=== PATIENT | male | born 1940 | race Caucasian/White ===

== ENCOUNTER 2019-06-24 12:40 | Day surgery (SDC) | payer OTHER ==
[~2019-06-24] VITALS: Ht 180.3 cm; Wt 82.5 kg
[~2019-06-24 12:40] MED LIST: ALLO100 PO; ASCO500 PO; ASPI325EC PO; ASPI81EC PO; ATOR40TA PO; Daily Multiple1 EACH PO; FISH OIL 1,0001 EAC1 PO; HYDACE10B PO; K-Dur20 MEQ PO; LOVA40 PO; METO50 PO; MICARDIS HCT PO; MITIGARE0.6 MG PO; OLME40 PO; OMEP20ER PO; TELM40 PO; VITAMIN D32000 UNI1 PO
--- NOTE | 2019-06-24 14:12 | NUR ---
06/24/19 1412 Chino Dozier EXPLAINED TO PT THAT DR QUEVEDO IS DELAYED IN SURGERY. PT STATES AN UNDERSTANDING. VSS. WARM BLANKET OFFERED. CALL LIGHT WITHIN REACH. WILL CONTINUE TO MONITOR.
--- NOTE | 2019-06-24 16:26 | NUR ---
06/24/19 1626 Chino Dozier PT RETCHING DURING COLONOSCOPY. PT SUCTIONED ORALLY. SMALL AMOUNT OF CLEAR SECRETIONS.
== END 2019-06-24 17:04 | disposition home or self-care (01) ==
LOC: ORSCSDS 12:40
PROVIDERS: Surgery
PROC: 0DJ08ZZ Inspection of Upper Intestinal Tract, Via Natural or Artificial Opening Endoscopic (ICD-10-PCS; principal; 2019-06-24 14:00)
PROC: 0DJD8ZZ Inspection of Lower Intestinal Tract, Via Natural or Artificial Opening Endoscopic (ICD-10-PCS; principal; 2019-06-24 14:00)
DX: D64.9 Anemia, unspecified (principal); I10 Essential (primary) hypertension; Z86.73 Personal history of transient ischemic attack (TIA), and cerebral infarction without residual deficits; E78.5 Hyperlipidemia, unspecified; F41.9 Anxiety disorder, unspecified; K21.9 Gastro-esophageal reflux disease without esophagitis; Z87.891 Personal history of nicotine dependence; Z79.899 Other long term (current) drug therapy
CPT/HCPCS: J2405; J2704; J7120

== ENCOUNTER 2022-02-20 11:28 | Inpatient (IN) | payer OTHER ==
[~2022-02-20] VITALS: Ht 180.3 cm; Wt 95.2 kg
[2022-02-20 12:26] LABS: BASOPHILS ABSOLUTE AUTO 0.03 K/mm3 (0.00-0.23); BASOPHILS PERCENT AUTO 0 % (0-2); EOSINOPHILS ABSOLUTE AUTO 0.02 K/mm3 (0.00-0.68); EOSINOPHILS PERCENT AUTO 0 % (0-6); Hematocrit 33.8 % (37.0-53.0); IMMATURE GRAN ABSOLUTE AUTO 0.07 K/mm3 (0.00-0.10); IMMATURE GRAN PERCENT AUTO 0 % (0-1); LYMPHOCYTES ABSOLUTE AUTO 0.49 K/mm3 (0.84-5.20); LYMPHOCYTES PERCENT AUTO 3 % (21-46); MONOCYTES ABSOLUTE AUTO 1.26 K/mm3 (0.16-1.47); MONOCYTES PERCENT AUTO 8 % (4-13); Mean Corpuscular HGB 36.4 pg (26.0-34.0); Mean Corpuscular HGB Conc 35.5 g/dL (31.5-36.5); Mean Corpuscular Volume 102 fL (80-100); Mean Platelet Volume 11.3 fL (9.1-12.4); NEUTROPHILS ABSOLUTE AUTO 13.75 K/mm3 (1.96-9.15); NEUTROPHILS PERCENT AUTO 88 % (41-73); Platelet Count 195 K/mm3 (150-400); RDW Coefficient Variation 12.8 % (11.7-14.2); RDW Standard Deviation 48.5 fL (35.1-46.3); White Blood Cell Count 15.62 K/mm3 (4.00-11.30)
[2022-02-20 12:45] LABS: Albumin, Blood 2.3 g/dL (3.4-5.0); Albumin/Globulin Ratio 0.5 (0.8-1.8); Bilirubin, Total 2.7 mg/dL (0.1-1.0); Bun/Creatinine Ratio 21.6 (12.0-20.0); Calcium, Blood 7.9 mg/dL (8.5-10.1); Creatinine, Blood 2.04 mg/dL (0.60-1.20); Globulin, Blood 4.7 g/dL (2.2-4.0)
[2022-02-20] MEDS ORDERED: AMLODIPINE BESYL5 MG PO (13:36)
[2022-02-20] MEDS ORDERED: ZOLOFT50 MG PO (13:38)
[2022-02-20 14:12] LABS: Source, Urine Clean Catch
[2022-02-20 14:24] LABS: Appearance, Urine Hazy (Clear); Bilirubin, Urine Neg (Neg); Blood, Urine 2+ (Neg); Color, Urine Yellow (P-Yellow); Glucose Qualitative, Urine Neg (Neg); Ketones, Urine Neg (Neg); Leukocyte Esterase, Urine Neg (Neg); Nitrite, Urine Neg (Neg); Protein, Urine 2+ (Neg); Specific Gravity, Urine 1.015 (1.003-1.022); Urobilinogen, Urine 2+ (Normal)
[2022-02-20 14:34] LABS: Bacteria Mod /hpf; Squamous Epithelial Cells Few /hpf (Few)
[2022-02-20 17:16] LABS: Campylobacter Sp Not Detected (NOT DETECT)
[2022-02-20 17:17] LABS: Adenovirus F 40/41 Not Detected (NOT DETECT); Astrovirus Not Detected (NOT DETECT); Cryptosporidium Not Detected (NOT DETECT); Cyclospora Cayetanensis Not Detected (NOT DETECT); Entamoeba Histolytica Not Detected (NOT DETECT); Enteroaggregative E. coli-EAEC Not Detected (NOT DETECT); Enteropathogenic E. coli-EPEC Not Detected (NOT DETECT); Enterotoxigenic E. coli-ETEC Not Detected (NOT DETECT); Giardia Lamblia Not Detected (NOT DETECT); Norovirus GI/GII Not Detected (NOT DETECT); Plesiomonas Shigelloides Not Detected (NOT DETECT); Rotavirus A Not Detected (NOT DETECT); Salmonella Sp Not Detected (NOT DETECT); Sapovirus Not Detected (NOT DETECT); Shiga Toxin-prod E. coli-STEC Not Detected (NOT DETECT); Shigella/Enteroin E. coli-EIEC Not Detected (NOT DETECT); Vibrio Cholerae Not Detected (NOT DETECT); Vibrio Sp Not Detected (NOT DETECT); Yersinia Enterocolitica Not Detected (NOT DETECT)
[2022-02-20 17:18] LABS: E. Coli O157 Not Detected (NOT DETECT)
[2022-02-20] MEDS ORDERED: TELMISARTAN-HC1 EAC4 PO (21:29)
[2022-02-20] MEDS ORDERED: SILDENAFIL CIT100 MG PO (21:32)
--- NOTE | 2022-02-21 04:33 | NUR ---
SHIFT SUMMARY PT ER ADMIT THIS SHIFT FOR ACUTE CHOLECYSTITIS. PT REPORTS MINIMAL PAIN AND NAUSEA SINCE ADMISSION. NO VOMITTING. ABD MILDLY DISTENDED BUT SOFT, BOWEL TONES HYPOACTIVE. PT HAS BEEN NPO PER ORDERS. PT HAS BEEN UP TO [facility] THIS SHIFT. HE IS ALSO INCONTINENT. IVF INFUSING ORDERED. PT HAS RESTED MOST OF THE SHIFT. PLAN IS FOR SURGERY TODAY. BED IN LOWEST POSITION, CALL LIGHT WITHIN REACH.
[2022-02-21 04:35] LABS: BASOPHILS ABSOLUTE AUTO 0.03 K/mm3 (0.00-0.23); BASOPHILS PERCENT AUTO 0 % (0-2); EOSINOPHILS ABSOLUTE AUTO 0.02 K/mm3 (0.00-0.68); EOSINOPHILS PERCENT AUTO 0 % (0-6); Hematocrit 32.1 % (37.0-53.0); IMMATURE GRAN ABSOLUTE AUTO 0.12 K/mm3 (0.00-0.10); IMMATURE GRAN PERCENT AUTO 1 % (0-1); LYMPHOCYTES ABSOLUTE AUTO 0.56 K/mm3 (0.84-5.20); LYMPHOCYTES PERCENT AUTO 3 % (21-46); MONOCYTES ABSOLUTE AUTO 1.44 K/mm3 (0.16-1.47); MONOCYTES PERCENT AUTO 8 % (4-13); Mean Corpuscular HGB 35.6 pg (26.0-34.0); Mean Corpuscular HGB Conc 34.3 g/dL (31.5-36.5); Mean Corpuscular Volume 104 fL (80-100); Mean Platelet Volume 11.4 fL (9.1-12.4); NEUTROPHILS ABSOLUTE AUTO 14.89 K/mm3 (1.96-9.15); NEUTROPHILS PERCENT AUTO 87 % (41-73); Platelet Count 152 K/mm3 (150-400); RDW Standard Deviation 49.6 fL (35.1-46.3); Red Blood Cell Count 3.09 M/mm3 (4.30-5.90); White Blood Cell Count 17.06 K/mm3 (4.00-11.30)
[2022-02-21 04:59] LABS: Albumin/Globulin Ratio 0.5 (0.8-1.8); Bilirubin, Total 1.7 mg/dL (0.1-1.0); Bun/Creatinine Ratio 22.9 (12.0-20.0); Calcium, Blood 7.5 mg/dL (8.5-10.1); Creatinine, Blood 1.57 mg/dL (0.60-1.20); Globulin, Blood 4.3 g/dL (2.2-4.0); Potassium, Blood 3.2 mmol/L (3.5-5.5); Total Protein, Blood 6.3 g/dL (6.4-8.2)
--- NOTE | 2022-02-21 11:02 | NUR ---
02/21/22 1102 Angelic Chahal PATIENT ON SCHEDULED ANTIBIOTICS, RECEIVED ZOSYN 3G, TODAY, AT 0907. HE RECEIVED HIS METOPROLOL 25MG, TODAY, AT 0906.
--- NOTE | 2022-02-21 12:48 | NUR ---
PATIENT ARRIVED TO ROOM FROM PACU ABOUT 1220. ALERT AND TALKATIVE TO STAFF. 2L [address], SATS >92%. X3 LAP SITES W/ DERMABOND, C/D/I. SEVERO TO RLQ DRAINING SS FLUID. PATIENT DENIES PAIN AT THIS TIME. ATTENDS IN PLACE FOR INCONTINENCE. CALL LIGHT IN REACH.
--- NOTE | 2022-02-21 18:10 | NUR ---
SHIFT SUMMARY PATIENT HAD GALLBLADDER REMOVED TODAY W/ DR. CRUZ. NO ACUTE CHANGES SINCE RETURNING TO FLOOR, PAIN HAS BEEN MINIMAL, MEDICATED X1 PER EMAR. LUNGS CLEAR, VSS ON RA, PATIENT TOLERATING PO DIET WELL, DENIES N/V. VOIDING WELL ALTHOUGH INCONT AT TIMES, ATTENDS IN PLACE. SAT AT EDGE OF BED FOR DINNER. WILL REPORT TO ONCOMING RN.
[2022-02-22 04:24] LABS: BASOPHILS ABSOLUTE AUTO 0.02 K/mm3 (0.00-0.23); BASOPHILS PERCENT AUTO 0 % (0-2); EOSINOPHILS PERCENT AUTO 0 % (0-6); Hematocrit 30.8 % (37.0-53.0); Hemoglobin 10.5 g/dL (13.5-17.5); IMMATURE GRAN ABSOLUTE AUTO 0.14 K/mm3 (0.00-0.10); IMMATURE GRAN PERCENT AUTO 1 % (0-1); LYMPHOCYTES ABSOLUTE AUTO 0.29 K/mm3 (0.84-5.20); LYMPHOCYTES PERCENT AUTO 2 % (21-46); MONOCYTES ABSOLUTE AUTO 0.77 K/mm3 (0.16-1.47); MONOCYTES PERCENT AUTO 6 % (4-13); Mean Corpuscular HGB 35.7 pg (26.0-34.0); Mean Corpuscular HGB Conc 34.1 g/dL (31.5-36.5); Mean Corpuscular Volume 105 fL (80-100); Mean Platelet Volume 11.2 fL (9.1-12.4); NEUTROPHILS ABSOLUTE AUTO 12.88 K/mm3 (1.96-9.15); NEUTROPHILS PERCENT AUTO 91 % (41-73); Platelet Count 173 K/mm3 (150-400); RDW Coefficient Variation 12.9 % (11.7-14.2); RDW Standard Deviation 50.1 fL (35.1-46.3); Red Blood Cell Count 2.94 M/mm3 (4.30-5.90)
[2022-02-22 04:45] LABS: Albumin, Blood 1.8 g/dL (3.4-5.0); Albumin/Globulin Ratio 0.4 (0.8-1.8); Bilirubin, Total 0.6 mg/dL (0.1-1.0); Bun/Creatinine Ratio 26.4 (12.0-20.0); Calcium, Blood 7.8 mg/dL (8.5-10.1); Creatinine, Blood 1.4 mg/dL (0.60-1.20); Globulin, Blood 4.1 g/dL (2.2-4.0); Magnesium, Blood 1.6 mg/dL (1.6-2.4); Potassium, Blood 4.1 mmol/L (3.5-5.5); Total Protein, Blood 5.9 g/dL (6.4-8.2)
--- NOTE | 2022-02-22 07:22 | NUR ---
SUMMARY PT VERB IMPROVED PAIN CONTROL. VOIDING INCONTINENT.TOLERATING PO.IV FLUIDS INFUSING,RECEIVED ANTIBIOTICS.BUTTOCKS CREASE SLIGHTLY PINK. APPLIED BARRIER CREAM.
--- NOTE | 2022-02-22 16:27 | NUR ---
LIP BRUISE PT HAS A BRUISE ON RIGHT SIDE OF LOWER LIP OF UNKNOWN CAUSE. PT STATES IT'S NOT PAINFUL, BUT WAS NOT THERE PRIOR TO ADMISSION. NO ABRASION OR OPEN SOAR.
--- NOTE | 2022-02-22 18:16 | NUR ---
SHIFT SUMMARY PT A&OX4. PAIN HAS BEEN MINIMAL. PT HAS BEEN USING THE BATHROOM WITH SBA AND FWW, ATTENDS IN PLACE INCASE OF INCONT. SAT IN CHAIR FOR BREAKFAST/LUNCH, TOLERATING PO INTAKE, NO N/V. SEVERO EMPTIED ONCE, 30ML. USES CALL LIGHT APPROPRIATELY. CALL LIGHT WITHIN REACH.
[2022-02-23 03:49] LABS: BASOPHILS ABSOLUTE AUTO 0.03 K/mm3 (0.00-0.23); BASOPHILS PERCENT AUTO 0 % (0-2); EOSINOPHILS ABSOLUTE AUTO 0.19 K/mm3 (0.00-0.68); EOSINOPHILS PERCENT AUTO 2 % (0-6); Hematocrit 32.4 % (37.0-53.0); Hemoglobin 10.9 g/dL (13.5-17.5); IMMATURE GRAN ABSOLUTE AUTO 0.23 K/mm3 (0.00-0.10); IMMATURE GRAN PERCENT AUTO 2 % (0-1); LYMPHOCYTES ABSOLUTE AUTO 0.87 K/mm3 (0.84-5.20); LYMPHOCYTES PERCENT AUTO 8 % (21-46); MONOCYTES PERCENT AUTO 6 % (4-13); Mean Corpuscular HGB 35.9 pg (26.0-34.0); Mean Corpuscular HGB Conc 33.6 g/dL (31.5-36.5); Mean Corpuscular Volume 107 fL (80-100); NEUTROPHILS ABSOLUTE AUTO 8.96 K/mm3 (1.96-9.15); NEUTROPHILS PERCENT AUTO 82 % (41-73); Platelet Count 206 K/mm3 (150-400); RDW Coefficient Variation 13.1 % (11.7-14.2); RDW Standard Deviation 50.9 fL (35.1-46.3); Red Blood Cell Count 3.04 M/mm3 (4.30-5.90); White Blood Cell Count 10.88 K/mm3 (4.00-11.30)
[2022-02-23 04:09] LABS: Albumin, Blood 1.9 g/dL (3.4-5.0); Albumin/Globulin Ratio 0.4 (0.8-1.8); Bilirubin, Total 0.5 mg/dL (0.1-1.0); Bun/Creatinine Ratio 28.3 (12.0-20.0); Calcium, Blood 8.2 mg/dL (8.5-10.1); Creatinine, Blood 1.2 mg/dL (0.60-1.20); Globulin, Blood 4.4 g/dL (2.2-4.0); Potassium, Blood 3.8 mmol/L (3.5-5.5); Total Protein, Blood 6.3 g/dL (6.4-8.2)
--- NOTE | 2022-02-23 04:31 | NUR ---
PT IS A&OX4, USES BU TO VOID, IS A SBA WHEN AMBULATING AND IS ABLE TO MAKE NEEDS KNOWN. PT IS POST OP DAY 2 FOR LAP TAN, HAS SEVERO DRAIN THAT IS PRODUCING SMALL AMOUNTS OF SEROSANG FLUID. PT IS ABLE TO SLEEP 6+ HOURS THIS SHIFT. TOLERATING PO FLUIDS AND SOLIDS. DENIES PAIN. WILL CONTINUE TO MONITOR THIS PT AND GIVE REPORT TO ONCOMING NURSE.
[2022-02-23] MEDS ORDERED: HYDR1TAB94 PO (11:03)
[2022-02-23] MEDS ORDERED: VISBIOME 112.51 EACH PO (11:03)
[2022-02-23] MEDS ORDERED: AMOCLA875 PO (11:04)
[2022-02-23] MEDS ORDERED: Norco 5-325 Ta1 EACH PO (14:28)
--- NOTE | 2022-02-23 14:48 | NUR ---
DISCHARGE VSS ON RA. PATIENT REPORTS MILD ABDOMINAL PAIN THAT IS TOLERABLE. LAP SITES W/ DERMABOND, C/D/I. EATING, DRINKING, 7 VOIDING WELL. NO BM YET, REPORTS FLATUS. DISCUSSED D/C INSTRUCTIONS AND SENT WITH PATIENT. SENT SCRIPT W/ PATIENT. ESCORTED OUT VIA W/C.
== END 2022-02-23 14:36 | disposition home or self-care (01) | DRG 418 ==
LOC: ER 11:28 → SURS 11:29 → ER 11:30 → EDBEDREQ 18:33 → EDBEDREQSVC 18:33 → EDBEDREQTM 18:33 → SURS 20:11
PROVIDERS: Emergency Medicine; Internal Medicine; Physician Assistant; Surgery; ADMIT Internal Medicine
PROC: 0FT44ZZ Resection of Gallbladder, Percutaneous Endoscopic Approach (ICD-10-PCS; principal; 2022-02-21 10:00)
DX: K80.00 Calculus of gallbladder with acute cholecystitis without obstruction (principal); N17.9 Acute kidney failure, unspecified; E87.6 Hypokalemia; K57.30 Diverticulosis of large intestine without perforation or abscess without bleeding; I71.4 Abdominal aortic aneurysm, without rupture; E78.00 Pure hypercholesterolemia, unspecified; K21.9 Gastro-esophageal reflux disease without esophagitis; M10.9 Gout, unspecified; I10 Essential (primary) hypertension; E78.5 Hyperlipidemia, unspecified; M19.90 Unspecified osteoarthritis, unspecified site; F10.10 Alcohol abuse, uncomplicated; Z79.82 Long term (current) use of aspirin; Z79.899 Other long term (current) drug therapy; Z87.891 Personal history of nicotine dependence; Z98.890 Other specified postprocedural states
CPT/HCPCS: 36415; 74176; 76705; 80053; 81001; 83605; 83690; 83735; 84484; 85025; 87040; 87086; 87507; 88304; 93005; 93010; 94760; 96365; 96366; 99285-25; A9270; G0378; J0295; J1100; J1885; J2250; J2405; J2543; J2704; J2710; J3010; J7030; J7120

== ENCOUNTER 2022-06-06 10:08 | Day surgery (SDC) | payer OTHER ==
[~2022-06-06] VITALS: Ht 177.8 cm; Wt 88.0 kg
[~2022-06-06 10:08] MED LIST changes: +AMLODIPINE BESYL5 MG PO; +AMOCLA875 PO; -ASPI325EC PO; +Aspir 8181 MG PO; +HYDR1TAB94 PO; +HYDROCHLOROTH12.5 MG PO; +METO100ER PO; -METO50 PO; +Norco 5-325 Ta1 EACH PO; +SILDENAFIL CIT100 MG PO; +TELM80 PO; +TELMISARTAN-HC1 EAC4 PO; +THERA-D2000 UNIT PO; +VISBIOME 112.51 EACH PO; +ZOLOFT50 MG PO
--- NOTE | 2022-06-06 15:32 | NUR ---
PATIENT RETURNED FROM THE [facility] VIA STRETCHER. PATIENT PLACED ON THE MONITOR AND SBAR GIVEN FROM PREETHI SAENZ. RIGHT GROIN SITE DRESSING CDI. NO BLEEDING, NO HEMATOMA. CALL LIGHT IN REACH. JUICE AT THE BEDSIDE. PATIENT CALLED HIS RIDE AND POTENTIAL DISCHARGE PLAN AT 1800.
--- NOTE | 2022-06-06 17:23 | NUR ---
PATIENT SITTING UP 45 DEGREES TO EAT DINNER TRAY. C/O LEFT THIGH PAIN/ CRAMPING, EXPLAINED TO THE PAITENT THAT THIS IS WHERE DR. CARRERO PERFORMED WORK ON HIS LEG ARTERY TODAY. STARTED REVEIWING DISCHARGE INSTRUCTIONS WITH THE [facility]AN[facility] AND HIS FOLLOW UP APPOINTMENT.
--- NOTE | 2022-06-06 17:39 | NUR ---
PATIENT UP TO THE RESTROOM. USING WALKER AND SLOW WALK TO AND FROM THE RESTROOM. PIV REMOVED, CATH TIP INTACT, PRESSURE DRESSING APPLIED. PATIENT CALLED FOR HOROLOGIST APPRENTICE AND THEN DRESSED SELF. ALL BELONGINGS GATHERED. REVIEWED DISCHARGE INSTRUCTIONS AND COPIES GIVEN.
--- NOTE | 2022-06-06 17:52 | NUR ---
PATIENT DISCHARGED HOME VIA WHEELCHAIR TO CLAIMS CORRESPONDENCE CLERK, FRIEND.
== END 2022-06-06 23:11 | disposition home or self-care (01) ==
LOC: MHTC 10:08
DX: I70.213 Atherosclerosis of native arteries of extremities with intermittent claudication, bilateral legs (principal); I13.0 Hypertensive heart and chronic kidney disease with heart failure and stage 1 through stage 4 chronic kidney disease, or unspecified chronic kidney disease; I50.9 Heart failure, unspecified; N18.9 Chronic kidney disease, unspecified; E78.5 Hyperlipidemia, unspecified; K21.9 Gastro-esophageal reflux disease without esophagitis; E03.9 Hypothyroidism, unspecified; Z86.73 Personal history of transient ischemic attack (TIA), and cerebral infarction without residual deficits; Z87.891 Personal history of nicotine dependence; Z79.82 Long term (current) use of aspirin; Z79.899 Other long term (current) drug therapy
CPT/HCPCS: 37227; 75625; 75716; 75774; 76937; 99152; 99153; C1714; C1760; C1769; C1874; C1887; C1894; C2623; J1644; J2250; J3010; J7030; J7040; Q9967

== ENCOUNTER 2023-01-04 20:01 | Inpatient (IN) | payer OTHER ==
[~2023-01-04] VITALS: Ht 180.3 cm; Wt 84.8 kg
[2023-01-04 20:27] LABS: BASOPHILS ABSOLUTE AUTO 0.03 K/mm3 (0.00-0.23); BASOPHILS PERCENT AUTO 0 % (0-2); EOSINOPHILS ABSOLUTE AUTO 0.01 K/mm3 (0.00-0.68); EOSINOPHILS PERCENT AUTO 0 % (0-6); Hematocrit 33.6 % (37.0-53.0); Hemoglobin 11.9 g/dL (13.5-17.5); IMMATURE GRAN ABSOLUTE AUTO 0.04 K/mm3 (0.00-0.10); IMMATURE GRAN PERCENT AUTO 0 % (0-1); LYMPHOCYTES ABSOLUTE AUTO 0.51 K/mm3 (0.84-5.20); LYMPHOCYTES PERCENT AUTO 4 % (21-46); MONOCYTES ABSOLUTE AUTO 0.77 K/mm3 (0.16-1.47); MONOCYTES PERCENT AUTO 5 % (4-13); Mean Corpuscular HGB 35.3 pg (26.0-34.0); Mean Corpuscular HGB Conc 35.4 g/dL (31.5-36.5); Mean Corpuscular Volume 100 fL (80-100); Mean Platelet Volume 11.2 fL (9.1-12.4); NEUTROPHILS ABSOLUTE AUTO 12.95 K/mm3 (1.96-9.15); NEUTROPHILS PERCENT AUTO 90 % (41-73); Platelet Count 215 K/mm3 (150-400); Red Blood Cell Count 3.37 M/mm3 (4.30-5.90); White Blood Cell Count 14.31 K/mm3 (4.00-11.30)
[2023-01-04 20:50] LABS: Albumin, Blood 3.2 g/dL (3.4-5.0); Albumin/Globulin Ratio 0.8 (0.8-1.8); Bun/Creatinine Ratio 21.1 (12.0-20.0); Calcium, Blood 8.7 mg/dL (8.5-10.1); Creatinine, Blood 0.99 mg/dL (0.60-1.20); Globulin, Blood 4.1 g/dL (2.2-4.0); Potassium, Blood 3.5 mmol/L (3.5-5.5); Total Protein, Blood 7.3 g/dL (6.4-8.2)
[2023-01-04 21:23] LABS: Source, Urine Clean Catch
[2023-01-04 21:28] LABS: Bilirubin, Urine Neg (Neg); Blood, Urine 5+ (Neg); Glucose Qualitative, Urine Neg (Neg); Ketones, Urine 1+ (Neg); Leukocyte Esterase, Urine Neg (Neg); Nitrite, Urine Neg (Neg); Protein, Urine 1+ (Neg); Urobilinogen, Urine NORM (Normal)
[2023-01-04 21:55] LABS: Appearance, Urine Hazy (Clear); Color, Urine Yellow (P-Yellow)
[2023-01-04 21:56] LABS: Bacteria Not Seen /hpf; Red Blood Cells, Urine TNTC /hpf (0-2); Squamous Epithelial Cells Not Seen /hpf (Few); White Blood Cells, Urine Not Seen /hpf (0-5)
[2023-01-05 05:03] LABS: BASOPHILS ABSOLUTE AUTO 0.04 K/mm3 (0.00-0.23); BASOPHILS PERCENT AUTO 1 % (0-2); EOSINOPHILS ABSOLUTE AUTO 0.09 K/mm3 (0.00-0.68); EOSINOPHILS PERCENT AUTO 1 % (0-6); Hematocrit 28.2 % (37.0-53.0); Hemoglobin 9.9 g/dL (13.5-17.5); IMMATURE GRAN ABSOLUTE AUTO 0.03 K/mm3 (0.00-0.10); IMMATURE GRAN PERCENT AUTO 0 % (0-1); LYMPHOCYTES ABSOLUTE AUTO 0.69 K/mm3 (0.84-5.20); LYMPHOCYTES PERCENT AUTO 8 % (21-46); MONOCYTES ABSOLUTE AUTO 0.71 K/mm3 (0.16-1.47); MONOCYTES PERCENT AUTO 8 % (4-13); Mean Corpuscular HGB 35.2 pg (26.0-34.0); Mean Corpuscular HGB Conc 35.1 g/dL (31.5-36.5); Mean Corpuscular Volume 100 fL (80-100); Mean Platelet Volume 11.1 fL (9.1-12.4); NEUTROPHILS ABSOLUTE AUTO 6.99 K/mm3 (1.96-9.15); NEUTROPHILS PERCENT AUTO 82 % (41-73); Platelet Count 162 K/mm3 (150-400); RDW Coefficient Variation 13.2 % (11.7-14.2); Red Blood Cell Count 2.81 M/mm3 (4.30-5.90); White Blood Cell Count 8.55 K/mm3 (4.00-11.30)
[2023-01-05 05:40] LABS: Albumin, Blood 2.7 g/dL (3.4-5.0); Albumin/Globulin Ratio 0.8 (0.8-1.8); Bilirubin, Total 0.7 mg/dL (0.1-1.0); Bun/Creatinine Ratio 20.7 (12.0-20.0); Calcium, Blood 7.8 mg/dL (8.5-10.1); Creatinine, Blood 1.11 mg/dL (0.60-1.20); Globulin, Blood 3.4 g/dL (2.2-4.0); Magnesium, Blood 0.9 mg/dL (1.6-2.4); Potassium, Blood 2.9 mmol/L (3.5-5.5); Total Protein, Blood 6.1 g/dL (6.4-8.2)
--- NOTE | 2023-01-05 07:17 | NUR ---
CROP PEST CONTROL SPECIALIST SUMMARY: A&Ox4. PLEASANT AND COOPERATIVE WITH CARE. CALLS APPROPRIATELY AND IS ABLE TO COMMUNICATE NEEDS EFFECTIVELY. ORIENTED TO ABILITIES AND EXHIBITS GOOD JUDGMENT. INDEPENDENT AT BASELINE BUT REQUIRING 1-2PA D/T LEFT-SIDED DEFICIT. NO C / O PAIN. LABS DRAWN THIS AM; CRITICAL MAGNESIUM OF 0.9 REPORTED. ALSO NOTED TO HAVE POTASSIUM OF 2.9. CALL TO DR JAEGER; ORDERS FOR MAGNESIUM 4000MG IV AND 40MEQ K+ NOW AND AGAIN IN FOUR HOURS. REPORT TO ONCOMING RN.
--- NOTE | 2023-01-05 17:51 | NUR ---
SHIFT SUMMARY: PATIENT A&OX4. CALM, PLEASANT AND COOPERATIVE c CARE. USES CALL LIGHT APPROPRIATELY AND ABLE TO MAKE NEEDS KNOWN. PATIENT HAS LEFT SIDED DEFICIT. NO ISSUES SWALLOWING c FOOD AND LIQUIDS. DENIES CP/PRESSURE, N/V, SOB, AND GENERALIZED PAIN. PATIENT ON TELE, SR HR 83 BPM c PVC. PATIENT WORK c PT MOBILITY TODAY, RECOMMENDED 1-2 HRS OF THERAPY DAILY. ECHO AND MRI DONE TODAY, AWAITING FOR RESULT. PATIENT IS CONTIN/INCONT OF URINE, USES URINAL c ASSISTANCE. NOTED RED BLOOD DISCHARGES COMING OUT FROM URETHRA. PATIENT DENIES PAIN TO SUPRAPUBIC AREA AND WHEN URINATING. VITAL SIGNS REVIEWED. L ARM ELEVATED ON PILLOWS, REPOSITIONED AND ATTENDS CHANGED. IV TO R FOREARM SALINE LOCKED. BED ALARM ON FOR SAFETY. CALL LIGHT IN REACH.
--- NOTE | 2023-01-06 04:00 | NUR ---
PROPOSAL WRITER SUMMARY NO ACUTE EVENTS THROUGHOUT THE NIGHT. A&OX4. PATIENT EFFECTIVELY COMMUNICATES NEEDS. VSS. RR EVEN AND UNLABORED ON RA. APAP ADMINISTERED PER ORDER FOR GENERALIZED PAIN. PATIENT APPEARED TO SLEEP WELL THIS SHIFT. BED LOW AND LOCKED. CALL LIGHT WITHIN REACH. THIS RN WILL CONTINUE TO MONITOR.
[2023-01-06 05:38] LABS: Bun/Creatinine Ratio 21.8 (12.0-20.0); Creatinine, Blood 1.24 mg/dL (0.60-1.20); Magnesium, Blood 2.1 mg/dL (1.6-2.4); Phosphorus, Blood 2.9 mg/dL (2.5-4.9); Potassium, Blood 3.4 mmol/L (3.5-5.5)
[2023-01-06] MEDS ORDERED: CLOP75 PO (16:02)
[2023-01-06 16:31] LABS: SARS-Cov-2 (COVID-19) PCR, MMC NEGATIVE (NEGATIVE)
--- NOTE | 2023-01-06 18:10 | NUR ---
SHIFT SUMMARY: NO ACUTE EVENTS. NO EVENTS ON TELEMETRY, SR-ST 90-110'S WITH FREQUENT PVC'S. L ARM HAS SOME LATERAL MOVEMENT BUT NO HAND STRENGTH. LLE WITH MINIMAL STRENGTH. DENIED PAIN. POTASSIUM REPLACED. USING URINAL WITH ASSISTANCE. WORKED WITH PT/OT. HAS BEEN ACCEPTED TO SNF, LIKELY D/C TOMORROW.
--- NOTE | 2023-01-07 05:27 | NUR ---
82 YR M ADMITTED ON 01/05/23 FOR CVA W/ LEFT SIDED DEFICEIT. FULL CODE. NO ACUTE CHANGES THIS SHIFT. PT STATES HE IS DETERMINED TO GET STRONGER AND BE INDEPENDANT. HE IS DOING EXERCISES IN BED THAT PT SUGGESTED FOR HIM, ESPECIALLY WITH HIS LEFT ARM. HE HAS A POSITIVE ATTITUDE AND HAS HAD NO C/O PAIN OR DISCOMFORT THIS SHIFT.
--- NOTE | 2023-01-07 16:08 | NUR ---
SHIFT SUMMARY: NO ACUTE EVENTS. NO EVENTS ON TELEMETRY, SR-ST 90-108 WITH PVC'S AND FIRST DEGREE BLOCK. SLIGHT IMPROVEMENT NOTED IN LLE STRENGTH, NO CHANGE TO LUE STRENGTH. USING URINAL WITH ASSISTANCE. REQUIRES 1-2 PERSON GAIT BELT AND FWW FOR TRANSFERS. APPETITE IS GOOD. AWAITING INSURANCE AUTH BEFORE TRANSFER TO [facility]ED REHAB.
[2023-01-08 06:51] LABS: Anion Gap 3 mmol/L (6-16); Blood Urea Nitrogen 28 mg/dL (8-24); Bun/Creatinine Ratio 25.7 (12.0-20.0); CHOL/HDL RATIO 3.6; CO2, Blood 30 mmol/L (21-32); Calcium, Blood 8.8 mg/dL (8.5-10.1); Chloride, Blood 105 mmol/L (98-108); Cholesterol 130 mg/dL (50-200); Creatinine, Blood 1.09 mg/dL (0.60-1.20); Glomerular Filtration Rate 67 (60-); Glucose, Blood 137 mg/dL (70-99); HDL Cholesterol 36 mg/dL (>39); LDL/HDL RATIO 1.8; Low Density Lipoprotein Chol 65 mg/dL (0-110); Potassium, Blood 3.7 mmol/L (3.5-5.5); Sodium, Blood 138 mmol/L (136-145); Triglycerides 145 mg/dL (30-160); Very Low Density Lipoprot Chol 29 mg/dL (6-32)
[2023-01-08 09:34] LABS: SARS-Cov-2 (COVID-19) PCR, MMC Negative (NEGATIVE)
[2023-01-08] MEDS ORDERED: PANT20 PO (10:39)
--- NOTE | 2023-01-08 12:49 | NUR ---
PATIENT PLEASANT AND COOPERATIVE WITH CARE. CHAIR ALARM ON FOR SAFETY. CALLS APPROPRIATELY. REPORT CALLED TO BRICE ORO AT [facility].
--- NOTE | 2023-01-08 15:31 | NUR ---
PATIENT DISCHARGED TO [facility], VIA WHEELCHAIR TRANSPORT, EDUCATION PROVIDED.
== END 2023-01-08 14:59 | DRG 65 ==
LOC: ER 20:01 → MEDS 20:02
PROVIDERS: Emergency Medicine; Internal Medicine; ADMIT Student in an Organized Health Care Education/Training Program
DX: I63.511 Cerebral infarction due to unspecified occlusion or stenosis of right middle cerebral artery (principal); G81.94 Hemiplegia, unspecified affecting left nondominant side; I10 Essential (primary) hypertension; E78.00 Pure hypercholesterolemia, unspecified; K21.9 Gastro-esophageal reflux disease without esophagitis; E83.42 Hypomagnesemia; Z20.822 Contact with and (suspected) exposure to COVID-19; E87.6 Hypokalemia; M10.9 Gout, unspecified; Z79.82 Long term (current) use of aspirin; Z79.899 Other long term (current) drug therapy; Z87.891 Personal history of nicotine dependence; Z98.890 Other specified postprocedural states; Z90.49 Acquired absence of other specified parts of digestive tract; Z28.21 Immunization not carried out because of patient refusal
CPT/HCPCS: 36415; 70450; 70496; 70498; 70551; 80048; 80053; 80061; 81001; 83735; 84100; 85025; 92610; 93005; 93010; 93306; 96365; 96366; 96372; 97110; 97112; 97162; 97166; 97530; 97535; 99285-25; A9270; G0378; J1650; J3475; Q9967; U0004

== ENCOUNTER 2023-03-03 14:14 | Emergency (ER) | payer OTHER ==
[~2023-03-03] VITALS: Ht 180.3 cm; Wt 88.5 kg
[~2023-03-03 14:14] MED LIST changes: -ATOR40TA PO; +CLOP75 PO; +PANT20 PO
[2023-03-03] MEDS ORDERED: OMEP20ER (14:44)
[2023-03-03] MEDS ORDERED: AMLODIPINE BESYL5 MG PO (14:44)
[2023-03-03] MEDS ORDERED: ATOR40TA PO (14:46)
[2023-03-03] MEDS ORDERED: LIDO700A20 TOP (16:21)
[2023-03-03 19:43] VITALS: BP 175/90
== END 2023-03-03 19:44 | disposition home or self-care (01) ==
LOC: ER 14:14
DX: M54.50 Low back pain, unspecified (principal); I10 Essential (primary) hypertension; E78.00 Pure hypercholesterolemia, unspecified; K21.9 Gastro-esophageal reflux disease without esophagitis; Z79.02 Long term (current) use of antithrombotics/antiplatelets; Z79.899 Other long term (current) drug therapy; Z87.891 Personal history of nicotine dependence; W18.30XA Fall on same level, unspecified, initial encounter; Y92.002 Bathroom of unspecified non-institutional (private) residence as the place of occurrence of the external cause
CPT/HCPCS: 72100; A9270; J1885

== ENCOUNTER 2023-05-03 09:52 | Emergency (ER) | payer OTHER ==
[~2023-05-03] VITALS: Ht 180.3 cm; Wt 78.0 kg
[~2023-05-03 09:52] MED LIST changes: +ATOR40TA PO; +LIDO700A20 TOP; +OMEP20ER
[2023-05-03 10:57] LABS: BASOPHILS ABSOLUTE AUTO 0.03 K/mm3 (0.00-0.23); BASOPHILS PERCENT AUTO 0 % (0-2); EOSINOPHILS ABSOLUTE AUTO 0.04 K/mm3 (0.00-0.68); EOSINOPHILS PERCENT AUTO 0 % (0-6); Hemoglobin 11.4 g/dL (13.5-17.5); IMMATURE GRAN ABSOLUTE AUTO 0.04 K/mm3 (0.00-0.10); IMMATURE GRAN PERCENT AUTO 0 % (0-1); LYMPHOCYTES ABSOLUTE AUTO 0.67 K/mm3 (0.84-5.20); LYMPHOCYTES PERCENT AUTO 6 % (21-46); MONOCYTES PERCENT AUTO 5 % (4-13); Mean Corpuscular HGB 32.9 pg (26.0-34.0); Mean Corpuscular HGB Conc 33.5 g/dL (31.5-36.5); Mean Corpuscular Volume 98 fL (80-100); Mean Platelet Volume 11.2 fL (9.1-12.4); NEUTROPHILS ABSOLUTE AUTO 9.63 K/mm3 (1.96-9.15); NEUTROPHILS PERCENT AUTO 87 % (41-73); Platelet Count 161 K/mm3 (150-400); RDW Coefficient Variation 14.3 % (11.7-14.2); RDW Standard Deviation 51.3 fL (35.1-46.3); Red Blood Cell Count 3.46 M/mm3 (4.30-5.90); White Blood Cell Count 11.01 K/mm3 (4.00-11.30)
[2023-05-03 11:15] LABS: Albumin, Blood 2.5 g/dL (3.4-5.0); Albumin/Globulin Ratio 0.6 (0.8-1.8); Bilirubin, Total 1.1 mg/dL (0.1-1.0); Bun/Creatinine Ratio 17.9 (12.0-20.0); Calcium, Blood 6.6 mg/dL (8.5-10.1); Creatinine, Blood 1.17 mg/dL (0.60-1.20); Potassium, Blood 3.2 mmol/L (3.5-5.5); Total Protein, Blood 6.5 g/dL (6.4-8.2)
[2023-05-03] MEDS ORDERED: PROM25 PO (11:58)
[2023-05-03 12:00] VITALS: BP 159/104
== END 2023-05-03 12:37 | disposition home or self-care (01) ==
LOC: ER 09:52
PROVIDERS: Emergency Medicine
DX: R11.2 Nausea with vomiting, unspecified (principal); Z87.891 Personal history of nicotine dependence; Z79.899 Other long term (current) drug therapy
CPT/HCPCS: 80053; 83690; 85025; J2405; J7030

== ENCOUNTER 2023-05-10 08:47 | Inpatient (IN) | payer OTHER ==
[~2023-05-10] VITALS: Ht 180.3 cm; Wt 78.9 kg
[~2023-05-10 08:47] MED LIST changes: -OMEP20ER; +PROM25 PO
[2023-05-10 09:06] LABS: BASOPHILS ABSOLUTE AUTO 0.03 K/mm3 (0.00-0.23); BASOPHILS PERCENT AUTO 0 % (0-2); EOSINOPHILS ABSOLUTE AUTO 0.03 K/mm3 (0.00-0.68); EOSINOPHILS PERCENT AUTO 0 % (0-6); Hematocrit 37.4 % (37.0-53.0); IMMATURE GRAN ABSOLUTE AUTO 0.14 K/mm3 (0.00-0.10); IMMATURE GRAN PERCENT AUTO 1 % (0-1); LYMPHOCYTES ABSOLUTE AUTO 1.21 K/mm3 (0.84-5.20); LYMPHOCYTES PERCENT AUTO 8 % (21-46); MONOCYTES PERCENT AUTO 5 % (4-13); Mean Corpuscular HGB 33.3 pg (26.0-34.0); Mean Corpuscular HGB Conc 34.8 g/dL (31.5-36.5); Mean Corpuscular Volume 96 fL (80-100); Mean Platelet Volume 11.2 fL (9.1-12.4); NEUTROPHILS ABSOLUTE AUTO 14.01 K/mm3 (1.96-9.15); NEUTROPHILS PERCENT AUTO 86 % (41-73); Platelet Count 316 K/mm3 (150-400); RDW Coefficient Variation 14.1 % (11.7-14.2); RDW Standard Deviation 49.5 fL (35.1-46.3); White Blood Cell Count 16.22 K/mm3 (4.00-11.30)
[2023-05-10 09:22] LABS: Albumin, Blood 2.9 g/dL (3.4-5.0); Albumin/Globulin Ratio 0.7 (0.8-1.8); Bun/Creatinine Ratio 23.2 (12.0-20.0); Calcium, Blood 6.1 mg/dL (8.5-10.1); Creatinine, Blood 1.12 mg/dL (0.60-1.20); Globulin, Blood 4.1 g/dL (2.2-4.0); Potassium, Blood 3.5 mmol/L (3.5-5.5)
[2023-05-10] MEDS ORDERED: FUROSEMIDE20 MG PO (09:52)
[2023-05-10] MEDS ORDERED: OMEP20ER (09:52)
[2023-05-10] MEDS ORDERED: LIPITOR80 MG PO (09:53)
[2023-05-10] MEDS ORDERED: Phenergan25 M1 PO (09:54)
[2023-05-10] MEDS ORDERED: CEPH500 PO (13:46)
[2023-05-10 17:42] LABS: Source, Urine Clean Catch
[2023-05-10 17:47] LABS: Bilirubin, Urine Neg (Neg); Blood, Urine Neg (Neg); Glucose Qualitative, Urine Neg (Neg); Ketones, Urine 3+ (Neg); Leukocyte Esterase, Urine Neg (Neg); Nitrite, Urine Neg (Neg); Protein, Urine Neg (Neg); Specific Gravity, Urine 1.015 (1.003-1.022); Urobilinogen, Urine NORM (Normal)
[2023-05-10 17:49] LABS: Appearance, Urine Clear (Clear); Color, Urine Pale Yellow (P-Yellow)
[2023-05-10 18:41] VITALS: BP 171/83
--- NOTE | 2023-05-10 18:50 | NUR ---
PT ARRIVED AT 1826 AOX4 AND HOLDING NAUSEA BAG HIS NAUSEA CONTINUES. PT SETTLED INTO ROOM AND IV FLUIDS STARTED. CALL LIGHT WITHIN REACH AND BED ALARM IN PLACE. WILL CONTINUE TO MONITOR.
[2023-05-10 19:27] VITALS: BP 169/85
[2023-05-11 02:33] VITALS: BP 145/80
[2023-05-11 05:04] LABS: BASOPHILS ABSOLUTE AUTO 0.01 K/mm3 (0.00-0.23); BASOPHILS PERCENT AUTO 0 % (0-2); EOSINOPHILS ABSOLUTE AUTO 0.01 K/mm3 (0.00-0.68); EOSINOPHILS PERCENT AUTO 0 % (0-6); Hematocrit 30.9 % (37.0-53.0); Hemoglobin 10.6 g/dL (13.5-17.5); IMMATURE GRAN ABSOLUTE AUTO 0.07 K/mm3 (0.00-0.10); IMMATURE GRAN PERCENT AUTO 1 % (0-1); LYMPHOCYTES ABSOLUTE AUTO 0.87 K/mm3 (0.84-5.20); LYMPHOCYTES PERCENT AUTO 7 % (21-46); MONOCYTES ABSOLUTE AUTO 0.69 K/mm3 (0.16-1.47); MONOCYTES PERCENT AUTO 6 % (4-13); Mean Corpuscular HGB 33.2 pg (26.0-34.0); Mean Corpuscular HGB Conc 34.3 g/dL (31.5-36.5); Mean Corpuscular Volume 97 fL (80-100); Mean Platelet Volume 11.2 fL (9.1-12.4); NEUTROPHILS ABSOLUTE AUTO 10.88 K/mm3 (1.96-9.15); NEUTROPHILS PERCENT AUTO 87 % (41-73); Platelet Count 167 K/mm3 (150-400); RDW Coefficient Variation 14.2 % (11.7-14.2); RDW Standard Deviation 50.4 fL (35.1-46.3); Red Blood Cell Count 3.19 M/mm3 (4.30-5.90); White Blood Cell Count 12.53 K/mm3 (4.00-11.30)
[2023-05-11 05:44] LABS: Albumin, Blood 2.3 g/dL (3.4-5.0); Albumin/Globulin Ratio 0.7 (0.8-1.8); Bilirubin, Total 0.5 mg/dL (0.1-1.0); Bun/Creatinine Ratio 20.6 (12.0-20.0); Calcium, Blood 5.4 mg/dL (8.5-10.1); Creatinine, Blood 1.07 mg/dL (0.60-1.20); Globulin, Blood 3.3 g/dL (2.2-4.0); Potassium, Blood 3.1 mmol/L (3.5-5.5); Total Protein, Blood 5.6 g/dL (6.4-8.2)
[2023-05-11 05:45] LABS: Magnesium, Blood 0.4 mg/dL (1.6-2.4)
--- NOTE | 2023-05-11 06:05 | NUR ---
SHIFT SUMMARY PT LAYING IN BED ASLEEP DURING BEDSIDE ROUNDS, IV INFUSING WITH LR AT 100ML/HR, DISCUSSED IGNITION ASSESSEMNT WITH PT- PT DENIED HAVING ITEMS OF IGNITION, STARTED ROCEPHIN FROM THE ED ORDER- PT TOLERATED WELL- PT C/O NAUSEA AT THAT TIME AND CALL TO FELIPA FLY FRAME TENDER- ZOFRAN ORDERED AND GIVEN TO PT- PT REPORTED GETTING RELIEF FROM THE ZOFRAN-[id number] PT USED CALL LIGHT AND PT CONFUSED AT FIRST, PT ABLE TO TELL THIS RN THAT HE WAS AT HOSPITAL AND WHY HE WAS HERE- PT REPORTED THAT HE WAKES AND IS CONFUSED AT FIRST OF SURROUNDINGS, REORIENTED- PT HAD RUN OF VTACH 7 BEATS, PT DENIES CHEST PAIN- REMINDED PT THAT BED ALARM IS SET AND TO USE CALL LIGHT FOR ANY NEEDS, PT STATED UNDERSTANDING, CONTACT PRECAUTIONS IN PLACE D/T GI PANEL ORDERED- GAVE PHENERGAN FOR PT C/O FEELING NAUSEA- 0530 CRITICAL CALCIUM AND MAGNESIUM CALL TO DR. MELODY DR. TO PUT IN ORDERS- BED LOW POSITION, CALL LIGHT WITH IN REACH
[2023-05-11 07:30] VITALS: BP 148/72
[2023-05-11 14:09] LABS: Magnesium, Blood 2.1 mg/dL (1.6-2.4); Potassium, Blood 3.1 mmol/L (3.5-5.5)
[2023-05-11 15:13] VITALS: BP 146/70
--- NOTE | 2023-05-11 16:49 | NUR ---
PT AOX4 AND COOPERATIVE OF CARE. PT IS DOING WELL AT THIS TIME. HAS BEEN FEELING BETTER ABOUT MOVING IN BED THROUGHOUT THE DAY. PT HAS BEEN TOLERATING JELLOW AT THIS TIME AND HAS NOT REPORTED NAUSEA SINCE START OF SHIFT. PT IS A BIT SHAKING WHEN ROLLED, BUT DOING WELL. PT HAS ALSO BEEN AKING WHEN HE NEEDS THE URINAL. CALL LIGHT IS WITHIN REACH WILL CONTINUE TO MONITOR. IGNITION RISK ASSESSMENT HAS BEEN DONE WITH HOURLY ROUNDING AND NO HAZARDS HAVE BEEN FOUND.
[2023-05-11 19:44] VITALS: BP 134/69
[2023-05-12 02:49] VITALS: BP 162/80
[2023-05-12 05:01] LABS: BASOPHILS ABSOLUTE AUTO 0.03 K/mm3 (0.00-0.23); BASOPHILS PERCENT AUTO 0 % (0-2); EOSINOPHILS ABSOLUTE AUTO 0.12 K/mm3 (0.00-0.68); EOSINOPHILS PERCENT AUTO 1 % (0-6); Hematocrit 30.9 % (37.0-53.0); Hemoglobin 10.4 g/dL (13.5-17.5); IMMATURE GRAN ABSOLUTE AUTO 0.06 K/mm3 (0.00-0.10); IMMATURE GRAN PERCENT AUTO 1 % (0-1); LYMPHOCYTES ABSOLUTE AUTO 0.53 K/mm3 (0.84-5.20); LYMPHOCYTES PERCENT AUTO 5 % (21-46); MONOCYTES PERCENT AUTO 6 % (4-13); Mean Corpuscular HGB 33.1 pg (26.0-34.0); Mean Corpuscular HGB Conc 33.7 g/dL (31.5-36.5); Mean Corpuscular Volume 98 fL (80-100); Mean Platelet Volume 11.1 fL (9.1-12.4); NEUTROPHILS ABSOLUTE AUTO 9.54 K/mm3 (1.96-9.15); NEUTROPHILS PERCENT AUTO 88 % (41-73); Platelet Count 154 K/mm3 (150-400); RDW Coefficient Variation 14.6 % (11.7-14.2); RDW Standard Deviation 52.1 fL (35.1-46.3); Red Blood Cell Count 3.14 M/mm3 (4.30-5.90); White Blood Cell Count 10.88 K/mm3 (4.00-11.30)
[2023-05-12 05:27] LABS: Albumin, Blood 2.2 g/dL (3.4-5.0); Albumin/Globulin Ratio 0.7 (0.8-1.8); Bilirubin, Total 0.5 mg/dL (0.1-1.0); Bun/Creatinine Ratio 22.2 (12.0-20.0); Calcium, Blood 6.7 mg/dL (8.5-10.1); Creatinine, Blood 0.9 mg/dL (0.60-1.20); Globulin, Blood 3.2 g/dL (2.2-4.0); Potassium, Blood 3.3 mmol/L (3.5-5.5); Total Protein, Blood 5.4 g/dL (6.4-8.2)
--- NOTE | 2023-05-12 07:00 | NUR ---
SHIFT SUMMARY PT SITTING UP IN BED DURING BEDSIDE ROUNDS, PT REPORTS FEELING STRONGER AND IS STARTING TO EAT A FEW BITES OF JELLO WITHOUT NAUSEA, SPOKE WITH MICHELLE VALDEZ CHARGE NURSE AND PT TAKEN OFF PRECAUTIONS FOR PENDING GI PANEL- NO BM SINCE ADMISSION, PT TOOK SCHEDULED PROBIOTIC AND IV FLUIDS RUNNING AND FLAGYL GIVEN Q8H- PT USING URINAL WITHOUT PROBLEMS, PT SAT UP AND WATCHED TV IN THE NIGHT- PT REPORTING HAVING A HARD TIME SLEEPING SINCE HE HAS BEEN SLEEPING FOR THE LAST COUPLE DAYS- 229 PT CALLED AND SPOKE WITH CHARGE NURSE ABOUT FEELING LIKE WHY HE WAS LAYING IN BED THE ROOM WAS UPSIDE DOWN - PT CALLED MULTIPLE TIMES AND WAS FEARFUL THAT HE WAS GOING TO FALL OUT OF BED, NEURO CHECKS WNL- CALL TO DR. GUPTA -ORDER TO HOLD FLAGYL X1 AND SEE IF THE SYMPTOMS SUBSIDE- GAVE PHENERAGHAN FOR PT REPORTED IT WAS STARTING TO MAKE HIM HAVE NAUSEA-BED LOW POSITION, CALL LIGHT WITHIN REACH
[2023-05-12 07:29] VITALS: BP 152/87
[2023-05-12 15:13] VITALS: BP 148/79
--- NOTE | 2023-05-12 17:58 | NUR ---
IGNITION ASSESSMENT DONE WITH HOURLY ROUNDING AND NO HAZARDS FOUND.
[2023-05-12 19:32] VITALS: BP 166/84
[2023-05-12] MEDS ORDERED: Aspir 8181 MG PO (22:18)
[2023-05-12] MEDS ORDERED: PANT20 PO (22:19)
[2023-05-12] MEDS ORDERED: THERA-D2000 UNIT PO (22:19)
[2023-05-12] MEDS ORDERED: KLOR-CON 1010 ME9 PO (22:25)
--- NOTE | 2023-05-13 04:51 | NUR ---
SHIFT SUMMARY. SHIFT HAS BEEN MOSTLY UNREMARKABLE. PT TOOK 2100 MEDICATIONS WITHOUT DIFFICULTY AND HAS SLEPT THROUGH MUCH OF REMAINDER OF SHIFT. CALLS APPROPRIATELY. INDEPENDENT WITH URINAL. NO COMPLAINTS OF PAIN THIS SHIFT. BED LOCKED IN LOWEST POSITION. CALL LIGHT LEFT WITHIN REACH.
[2023-05-13 04:59] LABS: Hematocrit 30.8 % (37.0-53.0); Hemoglobin 10.7 g/dL (13.5-17.5); Mean Corpuscular HGB 33.9 pg (26.0-34.0); Mean Corpuscular HGB Conc 34.7 g/dL (31.5-36.5); Mean Corpuscular Volume 98 fL (80-100); Mean Platelet Volume 11.3 fL (9.1-12.4); Platelet Count 144 K/mm3 (150-400); RDW Coefficient Variation 14.3 % (11.7-14.2); RDW Standard Deviation 51.4 fL (35.1-46.3); Red Blood Cell Count 3.16 M/mm3 (4.30-5.90); White Blood Cell Count 12.18 K/mm3 (4.00-11.30)
[2023-05-13 05:13] VITALS: BP 168/91
[2023-05-13 05:26] LABS: BASOPHILS ABSOLUTE MAN 0.12 K/mm3 (0.00-0.23); BASOPHILS PERCENT MAN 1 % (0-2); EOSINOPHILS ABSOLUTE MAN 0.24 K/mm3 (0.00-0.68); EOSINOPHILS PERCENT MAN 2 % (0-6); LYMPHOCYTES ABSOLUTE MAN 0.48 K/mm3 (0.84-5.20); LYMPHOCYTES PERCENT MAN 4 % (21-46); MONOCYTES ABSOLUTE MAN 0.24 K/mm3 (0.16-1.47); MONOCYTES PERCENT MAN 2 % (4-13); NEUTROPHILS ABSOLUTE MAN 11.08 K/mm3 (1.96-9.15); SEG NEUTROPHILS PERCENT MAN 91 % (41-73); TOTAL CELLS COUNTED 100
[2023-05-13 05:43] LABS: Albumin/Globulin Ratio 0.6 (0.8-1.8); Bilirubin, Total 0.7 mg/dL (0.1-1.0); Bun/Creatinine Ratio 14.6 (12.0-20.0); Creatinine, Blood 0.76 mg/dL (0.60-1.20); Globulin, Blood 3.2 g/dL (2.2-4.0); Potassium, Blood 3.2 mmol/L (3.5-5.5); Total Protein, Blood 5.2 g/dL (6.4-8.2)
[2023-05-13 07:25] VITALS: BP 157/91
[2023-05-13 08:17] LABS: Magnesium, Blood 1.4 mg/dL (1.6-2.4); Phosphorus, Blood 1.5 mg/dL (2.5-4.9)
[2023-05-13] MEDS ORDERED: MAGNESIUM OXID500 MG PO (13:48)
[2023-05-13] MEDS ORDERED: MECL25 PO (13:48)
--- NOTE | 2023-05-13 16:37 | NUR ---
DISCHARGE: PT D/C @1540 VIA TRANSPORT BACK TO [facility]. IV IN LAC AND RFA TAKEN OUT W/O COMPLICATIONS. IV POTASSIUM PHOSPHATE, MAGNESIUM, AND CALCIUM COMPLETED PRIOR TO D/C. TO STILL HAD SOME DIZZINESS UPON D/C. EXPLAINED TO PT NEW MEDICATIONS. PT VERY APPRECIATIVE OF ALL CARE. TELE SENT BACK. ALL BELONGINGS SENT WITH PT AND DAUGHTER.
== END 2023-05-13 15:49 | disposition home health service (06) | DRG 872 ==
LOC: ER 08:47 → MEDS 08:48 → ENPENDDIS 05-13 11:28 → MEDS 05-13 15:49
PROVIDERS: Emergency Medicine; Family Medicine; Internal Medicine; ADMIT Hospitalist
DX: A41.9 Sepsis, unspecified organism (principal); N39.0 Urinary tract infection, site not specified; K52.9 Noninfective gastroenteritis and colitis, unspecified; M48.56XA Collapsed vertebra, not elsewhere classified, lumbar region, initial encounter for fracture; E86.0 Dehydration; I10 Essential (primary) hypertension; K21.9 Gastro-esophageal reflux disease without esophagitis; M10.9 Gout, unspecified; F10.90 Alcohol use, unspecified, uncomplicated; I44.0 Atrioventricular block, first degree; E78.00 Pure hypercholesterolemia, unspecified; M19.90 Unspecified osteoarthritis, unspecified site; I71.40 Abdominal aortic aneurysm, without rupture, unspecified; R74.8 Abnormal levels of other serum enzymes; E83.51 Hypocalcemia; Z90.49 Acquired absence of other specified parts of digestive tract; Z79.899 Other long term (current) drug therapy; Z98.890 Other specified postprocedural states; Z86.73 Personal history of transient ischemic attack (TIA), and cerebral infarction without residual deficits; Z87.891 Personal history of nicotine dependence; Z79.02 Long term (current) use of antithrombotics/antiplatelets
CPT/HCPCS: 36415; 70450; 71045; 74177; 80053; 81003; 82330; 82652; 83605; 83690; 83735; 84100; 84132; 84484; 85025; 87040; 93005; 93010; 96361; 96365-59; 96366; 96367; 96375; 96376; 97110; 97112; 97161; 97530; 99285-25; A9270; G0378; J0612; J0696; J0780; J1200; J1650; J2405; J2765; J3475; J3480; J7030; J7040; J7050; J7060; J7120; Q9967

== ENCOUNTER → 2023-08-30 | Outpatient (CLI) | payer OTHER ==
[~2023-08-30] MED LIST changes: +A AND D OINTM42.5 G1 TOP; +CEPH500 PO; +FUROSEMIDE20 MG PO; +KLOR-CON 1010 ME9 PO; +LIPITOR80 MG PO; +MAGNESIUM OXID500 MG PO; +MECL25 PO; +OMEP20ER; +Phenergan25 M1 PO
[2023-08-30 18:16] LABS: Appearance, Urine Cloudy (Clear); Bilirubin, Urine Neg (Neg); Blood, Urine 3+ (Neg); Color, Urine Yellow (P-Yellow); Glucose Qualitative, Urine Neg (Neg); Ketones, Urine Neg (Neg); Leukocyte Esterase, Urine 3+ (Neg); Nitrite, Urine Pos (Neg); Protein, Urine 3+ (Neg); Specific Gravity, Urine 1.015 (1.003-1.022); Urobilinogen, Urine NORM (Normal)
[2023-08-30 18:33] LABS: Mucus Heavy (0-Heavy)
[2023-08-30 18:34] LABS: Amorphous Light (0-Heavy); Bacteria Many /hpf; Red Blood Cells, Urine 25-50 /hpf (0-2); Squamous Epithelial Cells Rare /hpf (Few); Transitional Epithelial Cells Rare /hpf (0-Rare); White Blood Cells, Urine 25-50 /hpf (0-5)
== END ==
LOC: LAB 11:04 → LAB SHORT 11:04
DX: N39.0 Urinary tract infection, site not specified (principal)
CPT/HCPCS: 81001; 87077; 87086; 87186

== ENCOUNTER 2023-08-31 12:40 | Emergency (ER) | payer OTHER ==
[~2023-08-31] VITALS: Ht 180.3 cm; Wt 78.9 kg
[~2023-08-31 12:40] MED LIST changes: -A AND D OINTM42.5 G1 TOP
[2023-08-31 13:24] LABS: Source, Urine Voided
[2023-08-31 13:27] LABS: BASOPHILS ABSOLUTE AUTO 0.05 K/mm3 (0.00-0.23); BASOPHILS PERCENT AUTO 1 % (0-2); EOSINOPHILS ABSOLUTE AUTO 0.15 K/mm3 (0.00-0.68); EOSINOPHILS PERCENT AUTO 2 % (0-6); Hematocrit 36.2 % (37.0-53.0); Hemoglobin 12.2 g/dL (13.5-17.5); IMMATURE GRAN ABSOLUTE AUTO 0.03 K/mm3 (0.00-0.10); IMMATURE GRAN PERCENT AUTO 0 % (0-1); LYMPHOCYTES PERCENT AUTO 8 % (21-46); MONOCYTES ABSOLUTE AUTO 0.77 K/mm3 (0.16-1.47); MONOCYTES PERCENT AUTO 8 % (4-13); Mean Corpuscular HGB 34.5 pg (26.0-34.0); Mean Corpuscular HGB Conc 33.7 g/dL (31.5-36.5); Mean Corpuscular Volume 102 fL (80-100); Mean Platelet Volume 10.9 fL (9.1-12.4); NEUTROPHILS ABSOLUTE AUTO 7.66 K/mm3 (1.96-9.15); NEUTROPHILS PERCENT AUTO 82 % (41-73); Platelet Count 199 K/mm3 (150-400); RDW Coefficient Variation 13.8 % (11.7-14.2); RDW Standard Deviation 52.2 fL (35.1-46.3); Red Blood Cell Count 3.54 M/mm3 (4.30-5.90); White Blood Cell Count 9.36 K/mm3 (4.00-11.30)
[2023-08-31 13:44] VITALS: BP 114/68
[2023-08-31 13:57] LABS: Appearance, Urine Cloudy (Clear); Bilirubin, Urine Neg (Neg); Blood, Urine 3+ (Neg); Color, Urine Yellow (P-Yellow); Glucose Qualitative, Urine Neg (Neg); Ketones, Urine Neg (Neg); Leukocyte Esterase, Urine 3+ (Neg); Nitrite, Urine Neg (Neg); Protein, Urine 3+ (Neg); Urobilinogen, Urine NORM (Normal)
[2023-08-31 13:58] LABS: Albumin, Blood 2.8 g/dL (3.4-5.0); Albumin/Globulin Ratio 0.7 (0.8-1.8); Bilirubin, Total 0.5 mg/dL (0.1-1.0); Bun/Creatinine Ratio 26.4 (12.0-20.0); Calcium, Blood 8.8 mg/dL (8.5-10.1); Creatinine, Blood 1.21 mg/dL (0.60-1.20); Potassium, Blood 3.7 mmol/L (3.5-5.5); Total Protein, Blood 6.8 g/dL (6.4-8.2)
[2023-08-31] MEDS ORDERED: CEPH500 PO (14:37)
[2023-08-31] MEDS ORDERED: A AND D OINTM42.5 G1 TOP (14:37)
[2023-08-31 14:45] LABS: White Blood Cells, Urine 25-50 /hpf (0-5)
[2023-08-31 14:46] LABS: Amorphous Light (0-Heavy); Bacteria Many /hpf; Mucus Heavy (0-Heavy); Squamous Epithelial Cells Few /hpf (Few)
== END 2023-08-31 15:27 | disposition home or self-care (01) ==
LOC: ER 12:40
PROVIDERS: Emergency Medicine
DX: N39.0 Urinary tract infection, site not specified (principal); R21 Rash and other nonspecific skin eruption; I10 Essential (primary) hypertension; E78.00 Pure hypercholesterolemia, unspecified; M10.9 Gout, unspecified; K21.9 Gastro-esophageal reflux disease without esophagitis; Z87.891 Personal history of nicotine dependence; Z79.82 Long term (current) use of aspirin; Z79.899 Other long term (current) drug therapy
CPT/HCPCS: 80053; 81001; 85025; 87077; 87086; 87186; 96365; 99283-25; J0696

== ENCOUNTER 2023-11-02 07:16 | Emergency (ER) | payer OTHER ==
[~2023-11-02] VITALS: Ht 177.8 cm; Wt 72.6 kg
[~2023-11-02 07:16] MED LIST changes: +A AND D OINTM42.5 G1 TOP
[2023-11-02 11:00] VITALS: BP 141/75
== END 2023-11-02 12:03 | disposition home or self-care (01) ==
LOC: ER 07:16
DX: M25.462 Effusion, left knee (principal); M54.50 Low back pain, unspecified; G89.29 Other chronic pain; M25.561 Pain in right knee; M17.12 Unilateral primary osteoarthritis, left knee; I10 Essential (primary) hypertension; E78.00 Pure hypercholesterolemia, unspecified; M10.9 Gout, unspecified; K21.9 Gastro-esophageal reflux disease without esophagitis; Z86.73 Personal history of transient ischemic attack (TIA), and cerebral infarction without residual deficits; Z87.891 Personal history of nicotine dependence; Z79.82 Long term (current) use of aspirin; Z79.02 Long term (current) use of antithrombotics/antiplatelets; Z79.899 Other long term (current) drug therapy
CPT/HCPCS: 20610; 73562-LT; 93005; 93010; 99285-25; J3301

== ENCOUNTER 2024-01-25 06:53 | Emergency (ER) | payer OTHER ==
[~2024-01-25] VITALS: Ht 172.7 cm; Wt 68.0 kg
[2024-01-25] MEDS ORDERED: Lidocaine 4% 1 Patch TOP ONE (07:15)
[2024-01-25] MEDS ORDERED: Ibuprofen 600 MG Tab PO ONE (07:15)
[2024-01-25] MEDS ORDERED: ALUM-MAG HYDROX30 M1 PO (07:18)
[2024-01-25] MEDS ORDERED: Calcium Carbon500 MG PO (07:18)
[2024-01-25] MEDS ORDERED: FURO40 PO (07:19)
[2024-01-25] MEDS ORDERED: IBUP200 PO (07:19)
[2024-01-25] MEDS ORDERED: LOPE2C PO (07:19)
[2024-01-25 08:40] LABS: Source, Urine Clean Catch
[2024-01-25 08:49] LABS: Appearance, Urine Cloudy (Clear); Bilirubin, Urine Neg (Neg); Blood, Urine 5+ (Neg); Color, Urine Yellow (P-Yellow); Glucose Qualitative, Urine Neg (Neg); Ketones, Urine Neg (Neg); Leukocyte Esterase, Urine 3+ (Neg); Nitrite, Urine Pos (Neg); Protein, Urine 2+ (Neg); Urobilinogen, Urine NORM (Normal)
[2024-01-25 09:16] LABS: Mucus Heavy (0-Heavy)
[2024-01-25] MEDS ORDERED: Cefpodoxime Proxetil 200 MG Tab PO ONE (09:20)
[2024-01-25 09:24] LABS: Bacteria Many /hpf
[2024-01-25 09:26] LABS: Triple Phosphate Crystals Rare /hpf
[2024-01-25 09:32] LABS: Red Blood Cells, Urine 0-2 /hpf (0-2); Squamous Epithelial Cells Rare /hpf (Few)
[2024-01-25] MEDS ORDERED: NAPR500 PO (09:34)
[2024-01-25] MEDS ORDERED: HYDR1TAB94 PO (09:34)
[2024-01-25] MEDS ORDERED: LIDO700A20 TOP (09:34)
[2024-01-25] MEDS ORDERED: CEFP200 PO (09:34)
[2024-01-25 10:00] VITALS: BP 120/59
== END 2024-01-25 10:22 | disposition home or self-care (01) ==
LOC: ER 06:53
PROVIDERS: Emergency Medicine
DX: M54.50 Low back pain, unspecified (principal); N39.0 Urinary tract infection, site not specified; M80.08XD Age-related osteoporosis with current pathological fracture, vertebra(e), subsequent encounter for fracture with routine healing; I10 Essential (primary) hypertension; M10.9 Gout, unspecified; K21.9 Gastro-esophageal reflux disease without esophagitis; M19.90 Unspecified osteoarthritis, unspecified site; Z87.891 Personal history of nicotine dependence; E78.00 Pure hypercholesterolemia, unspecified; I73.9 Peripheral vascular disease, unspecified; Z86.73 Personal history of transient ischemic attack (TIA), and cerebral infarction without residual deficits; Z79.82 Long term (current) use of aspirin; Z79.02 Long term (current) use of antithrombotics/antiplatelets; Z79.899 Other long term (current) drug therapy
CPT/HCPCS: 72100; 73502; 81001; 87077; 87086; 87186; 99283-25; A9270

== ENCOUNTER 2024-07-05 09:17 | Emergency (ER) | payer OTHER ==
[~2024-07-05] VITALS: Ht 180.3 cm; Wt 86.2 kg
[~2024-07-05 09:17] MED LIST changes: +ALUM-MAG HYDROX30 M1 PO; +CEFP200 PO; +Calcium Carbon500 MG PO; +FURO40 PO; +IBUP200 PO; +LOPE2C PO; +NAPR500 PO
[2024-07-05] MEDS ORDERED: Diphth,Pertuss(Acell),Tet Vac 0.5 ML VIAL IM ONE (11:05)
[2024-07-05 13:48] VITALS: BP 118/76
== END 2024-07-05 13:49 | disposition home or self-care (01) ==
LOC: ER 09:17
DX: S00.03XA Contusion of scalp, initial encounter (principal); I10 Essential (primary) hypertension; K21.9 Gastro-esophageal reflux disease without esophagitis; I69.954 Hemiplegia and hemiparesis following unspecified cerebrovascular disease affecting left non-dominant side; W05.0XXA Fall from non-moving wheelchair, initial encounter; Z87.891 Personal history of nicotine dependence; Z79.899 Other long term (current) drug therapy; Z79.82 Long term (current) use of aspirin
CPT/HCPCS: 70450; 90471; 90715; 93005; 93010; 99284-25

== ENCOUNTER → 2024-08-03 | Outpatient (CLI) | payer OTHER ==
[2024-08-03 15:58] LABS: Source, Urine Voided
[2024-08-03 16:54] LABS: Appearance, Urine Clear (Clear); Bilirubin, Urine Neg (Neg); Blood, Urine Neg (Neg); Color, Urine Yellow (P-Yellow); Glucose Qualitative, Urine Neg (Neg); Ketones, Urine Neg (Neg); Leukocyte Esterase, Urine Neg (Neg); Nitrite, Urine Neg (Neg); Protein, Urine 1+ (Neg); Specific Gravity, Urine 1.015 (1.003-1.022); Urobilinogen, Urine NORM (Normal)
== END | disposition home or self-care (01) ==
LOC: LAB 15:56 → LAB SHORT 15:56
DX: N39.0 Urinary tract infection, site not specified (principal)
CPT/HCPCS: 87086

== ENCOUNTER → 2024-08-13 | Outpatient (CLI) | payer OTHER ==
[2024-08-13 15:29] LABS: Source, Urine Voided
[2024-08-13 18:54] LABS: Appearance, Urine Clear (Clear); Bilirubin, Urine Neg (Neg); Blood, Urine Neg (Neg); Glucose Qualitative, Urine Neg (Neg); Ketones, Urine Neg (Neg); Leukocyte Esterase, Urine Neg (Neg); Nitrite, Urine Neg (Neg); Protein, Urine 1+ (Neg); Urobilinogen, Urine NORM (Normal)
[2024-08-13 19:30] LABS: Color, Urine Pale Yellow (P-Yellow)
== END ==
LOC: LAB 15:21 → LAB SHORT 15:21
DX: N39.0 Urinary tract infection, site not specified (principal)
CPT/HCPCS: 87077; 87086; 87186

== ENCOUNTER 2024-10-30 02:59 | Inpatient (IN) | payer OTHER ==
[~2024-10-30] VITALS: Ht 180.3 cm; Wt 80.1 kg
[~2024-10-30 02:59] MED LIST changes: +Amlodipine Bes2.5 MG PO
[2024-10-30 04:55] LABS: BASOPHILS ABSOLUTE AUTO 0.07 K/mm3 (0.00-0.23); BASOPHILS PERCENT AUTO 1 % (0-2); EOSINOPHILS ABSOLUTE AUTO 0.03 K/mm3 (0.00-0.68); EOSINOPHILS PERCENT AUTO 0 % (0-6); Hematocrit 40.1 % (37.0-53.0); Hemoglobin 13.5 g/dL (13.5-17.5); IMMATURE GRAN PERCENT AUTO 1 % (0-1); LYMPHOCYTES ABSOLUTE AUTO 0.55 K/mm3 (0.84-5.20); LYMPHOCYTES PERCENT AUTO 4 % (21-46); MONOCYTES ABSOLUTE AUTO 0.78 K/mm3 (0.16-1.47); MONOCYTES PERCENT AUTO 6 % (4-13); Mean Corpuscular HGB 35.1 pg (26.0-34.0); Mean Corpuscular HGB Conc 33.7 g/dL (31.5-36.5); Mean Corpuscular Volume 104 fL (80-100); NEUTROPHILS ABSOLUTE AUTO 11.36 K/mm3 (1.96-9.15); NEUTROPHILS PERCENT AUTO 88 % (41-73); Platelet Count 221 K/mm3 (150-400); RDW Coefficient Variation 14.4 % (11.7-14.2); RDW Standard Deviation 54.9 fL (35.1-46.3); Red Blood Cell Count 3.85 M/mm3 (4.30-5.90); White Blood Cell Count 12.89 K/mm3 (4.00-11.30)
[2024-10-30 05:08] LABS: Albumin, Blood 2.8 g/dL (3.4-5.0); Albumin/Globulin Ratio 0.7 (0.8-1.8); Bilirubin, Total 0.7 mg/dL (0.1-1.0); Bun/Creatinine Ratio 22.4 (12.0-20.0); Calcium, Blood 8.9 mg/dL (8.5-10.1); Creatinine, Blood 1.61 mg/dL (0.60-1.20); Globulin, Blood 4.1 g/dL (2.2-4.0); Magnesium, Blood 1.7 mg/dL (1.6-2.4); Phosphorus, Blood 3.7 mg/dL (2.5-4.9); Potassium, Blood 3.8 mmol/L (3.5-5.5); Total Protein, Blood 6.9 g/dL (6.4-8.2)
[2024-10-30 05:12] LABS: CORONAVIRUS COVID-19 AG Negative (NEGATIVE); INFLUENZA A AG Negative (NEGATIVE); INFLUENZA B AG Negative (NEGATIVE)
[2024-10-30 05:13] LABS: D-Dimer, Quantitative 2.06 mg/L FEU (0.00-0.52); International Normalized Ratio 1.03
[2024-10-30] MEDS ORDERED: Azithromycin 500 MG in NS 250 ML IV ONE (05:20)
[2024-10-30] MEDS ORDERED: CefTRIAXone Sodium 1,000 MG in NS 50 ML IV ONE (05:20)
[2024-10-30 05:29] LABS: Base Excess Venous 0.5 mmol/L; Bicarbonate Venous 24.1 mmol/L (24.0-30.0); PCO2 Venous 46.3 mmHg (38-42); pH Blood Venous 7.36 (7.34-7.37)
[2024-10-30] MEDS ORDERED: FLU VACC TS2024-25(6MOS UP)/PF 45 MCG/0.5 ML SYRINGE IM ONE (05:40)
[2024-10-30] MEDS ORDERED: Ondansetron HCl 2 MG / ML 2ML Vial IV PRN ×2 (05:40→06:20)
[2024-10-30] MEDS ORDERED: Ipratropium/Albuterol SulF 2.5-0.5MG/3 ML Amp INH PRN ×2 (05:40→06:20)
[2024-10-30] MEDS ORDERED: FLU VACC TS2024-25(6MOS UP)/PF 45 MCG/0.5 ML SYRINGE IM SCH (05:40)
[2024-10-30] MEDS ORDERED: MethylPREDNISolone Sod Succ 125 MG Vial IV SCH (07:00)
[2024-10-30] MEDS ORDERED: Furosemide 10 MG/ML 4ML Vial IV SCH (07:00)
[2024-10-30] MEDS ORDERED: Vancomycin HCL 2,000 MG in NS 500 ML IV SCH (08:00)
[2024-10-30] MEDS ORDERED: Piperacillin/Tazobactam Sod 3.375 GM in NS 100 ML IV SCH (08:00)
[2024-10-30] MEDS ORDERED: Enoxaparin 40 MG/0.4 ML SYR SC SCH ×2 (09:00)
[2024-10-30 10:21] LABS: Source, Urine Clean Catch
[2024-10-30 10:27] LABS: Appearance, Urine Clear (Clear); Bilirubin, Urine Neg (Neg); Blood, Urine Neg (Neg); Color, Urine Yellow (P-Yellow); Glucose Qualitative, Urine Neg (Neg); Ketones, Urine Neg (Neg); Leukocyte Esterase, Urine Neg (Neg); Nitrite, Urine Neg (Neg); Protein, Urine Neg (Neg); Specific Gravity, Urine 1.015 (1.003-1.022); Urobilinogen, Urine NORM (Normal)
[2024-10-30] MEDS ORDERED: Heparin Sodium,Porcine/0.5 NS 500 ML IV SCH (13:10)
[2024-10-30 13:27] VITALS: BP 114/77
--- NOTE | 2024-10-30 13:57 | NUR ---
ADMISSION; PT ARRIVED TO PCU 20 VIA GURNEY AT 1300. PT ALERT AND ORIENTED X3, ABLE TO FOLLOW COMMANDS AND MAKE NEEDS KNOWN. FORGETFUL AT TIMES, POOR HISTORIAN. PT WITH HX OF CVA WITH L. SIDE DEFECIT. BP AND HR STABLE. DENIES CP/PRESSURE. AFEBRILE. SPO2 >90% ON 9L NC. ROOM AIR AT BASELINE. LUNG SOUNDS COARSE, DIM IN BASES. ABD SOFT, NON TENDER, BOWEL SOUNDS +. PULSES PALPABLE. PT WITH TROPONIN >5000. MD NOTIFIED. CARDIOLOGY CONSULTED. HEPARIN INFUSING PER EMAR. ECHO COMPLETED IN ER. PT WHEELCHAIR BOUND AT BASELINE. CURRENTLY NPO. AT BEDSIDE AND UPDATED ON PT PLAN OF CARE. PT ORIENTED TO ROOM AND CALL LIGHT SYSTEM. BED IN LOW, CALL LIGHT IN REACH.
[2024-10-30 16:18] VITALS: BP 123/73
--- NOTE | 2024-10-30 17:02 | NUR ---
SHIFT SUMMARY: PT WITH NO ACUTE EVENTS SINCE ADMISSION. BP AND HR STABLE. DENIES CP/PRESSURE. AFEBRILE. SPO2 >90% ON 9L NC. HEPARIN GTT. CARDIOLOGY CONSULTED, REMAINS NPO AT THIS TIME. PT WITH ONE BM SINCE ARRIVAL TO UNIT. DENIES PAIN THROUGHOUT. BED IN LOW, CALL LIGHT IN REACH, WILL REPORT TO ONCOMING RN.
[2024-10-30 19:39] VITALS: BP 124/82
[2024-10-30] MEDS ORDERED: Clarify Drug Order XX ONE (21:20)
[2024-10-31] VITALS (8 sets, daily range): BP systolic 115–137; BP diastolic 72–94
[2024-10-31 03:49] LABS: BASOPHILS ABSOLUTE AUTO 0.01 K/mm3 (0.00-0.23); BASOPHILS PERCENT AUTO 0 % (0-2); EOSINOPHILS PERCENT AUTO 0 % (0-6); Hematocrit 34.3 % (37.0-53.0); Hemoglobin 11.7 g/dL (13.5-17.5); IMMATURE GRAN ABSOLUTE AUTO 0.06 K/mm3 (0.00-0.10); IMMATURE GRAN PERCENT AUTO 1 % (0-1); LYMPHOCYTES ABSOLUTE AUTO 0.31 K/mm3 (0.84-5.20); LYMPHOCYTES PERCENT AUTO 4 % (21-46); MONOCYTES ABSOLUTE AUTO 0.11 K/mm3 (0.16-1.47); MONOCYTES PERCENT AUTO 1 % (4-13); Mean Corpuscular HGB Conc 34.1 g/dL (31.5-36.5); Mean Corpuscular Volume 103 fL (80-100); Mean Platelet Volume 10.9 fL (9.1-12.4); NEUTROPHILS ABSOLUTE AUTO 7.19 K/mm3 (1.96-9.15); NEUTROPHILS PERCENT AUTO 94 % (41-73); Platelet Count 179 K/mm3 (150-400); RDW Coefficient Variation 14.4 % (11.7-14.2); RDW Standard Deviation 54.5 fL (35.1-46.3); Red Blood Cell Count 3.34 M/mm3 (4.30-5.90); White Blood Cell Count 7.68 K/mm3 (4.00-11.30)
[2024-10-31 04:11] LABS: Albumin, Blood 2.4 g/dL (3.4-5.0); Albumin/Globulin Ratio 0.7 (0.8-1.8); Bilirubin, Total 0.5 mg/dL (0.1-1.0); Calcium, Blood 7.9 mg/dL (8.5-10.1); Creatinine, Blood 1.74 mg/dL (0.60-1.20); Globulin, Blood 3.5 g/dL (2.2-4.0); Magnesium, Blood 1.8 mg/dL (1.6-2.4); Potassium, Blood 3.4 mmol/L (3.5-5.5); Total Protein, Blood 5.9 g/dL (6.4-8.2)
[2024-10-31] MEDS ORDERED: Mag Sulfate 1 GM/D5% 100ML 100 ML IV STA (04:35)
[2024-10-31] MEDS ORDERED: Potassium Chloride 20 MEQ in NS 90 ML IV SCH (04:40)
[2024-10-31] MEDS ORDERED: Dose Adjust by Pharmacy XX STA ×3 (04:44→20:49)
[2024-10-31] MEDS ORDERED: NS 250 ML IV PRN (05:05)
--- NOTE | 2024-10-31 05:29 | NUR ---
SHIFT SUMMARY THIS RN ASSUMED CARE OF PATIENT AT 1900. PT A&O X4. FORGETFUL AT TIMES. CALLING APPROPRIATELY. PT ON 8-9L VIA [employer] NC. SR ON MONITOR WITH HR 70-80'S. 9 BEAT RUN OF VTACH AT BEGINNING OF SHIFT; ASYMPTOMATIC. OTHER VSS. REPLACING MAG AND POTASSIUM PER EMAR/MD. REPOSITIONING Q2HRS. PT CONTINENT. USING URINAL AND BEDPAN. HEP GTT INFUSING PER EMAR. CURRENTLY PAUSED FOR 1HR PER PHARMACIST FOR HIGH PTT. WILL RESUME AT NEW LOWER RATE PER EMAR. NO S/S OF BLEEDING NOTED. BED IN LOWEST POSITION AND CALL LIGHT WITHIN REACH. THIS RN WILL REPORT TO ONCOMING DAYSHIFT RN.
[2024-10-31] MEDS ORDERED: Aspirin 81 MG TabEC PO SCH (09:00)
[2024-10-31] MEDS ORDERED: Atorvastatin 40 MG Tab PO SCH (09:00)
[2024-10-31] MEDS ORDERED: Clopidogrel Bisulfate 75 MG Tab PO SCH (09:00)
[2024-10-31] MEDS ORDERED: Vancomycin HCL 1,000 MG in NS 250 ML IV SCH (09:00)
[2024-10-31] MEDS ORDERED: Nitroglycerin 0.4 MG SUBL SL PRN (10:30)
--- NOTE | 2024-10-31 10:57 | NUR ---
UPDATE: 0930: PT WITH 7/10 CHEST PAIN RADIATING TO HIS LEFT ARM. BLOOD PRESSURE STABLE. EKG OBTAINED. HEPARING REMAINS INFUSING. ENGINEER SPECIALIST NOTIFIED. 0945: ENGINEER SPECIALIST AT BEDSIDE. REVIEWED EKG. STAT TROPONIN AND X1 NITRO. VSS.
[2024-10-31] MEDS ORDERED: Empagliflozin 10 MG TAB PO SCH (11:00)
[2024-10-31] MEDS ORDERED: Metoprolol Succinate 25 MG TABCR PO SCH (11:00)
--- NOTE | 2024-10-31 16:33 | NUR ---
SHIFT SUMMARY: PT REMAINS ALERT AND ORIENTED X4 ABLE TO FOLLOW COMMANDS AND MAKE NEEDS KNOWN. BP AND HR. STABLE. AFEBRILE. SPO2 >90% ON 7L NC. ABD SOFT, NON TENDER, BOWEL SOUNDS +. PULSES STRONG AND EQUAL THROUGHOUT. PT WITH ONE EPISODE OF CHEST PAIN THIS SHIFT, SEE PREVIOUS NOTE. VITAL SIGNS REMAINED STABLE. PT ABLE TO USE URINAL IN BED, ONE BM. REPOS Q2 TO MAINTAIN SKIN INTEGRITY. HEPARIN GTT IN L. AC. BED IN LOW, CALL LIGHT IN REACH, WILL REPORT TO ONCOMING RN.
[2024-11-01] MEDS ORDERED: Furosemide 10 MG / ML 2ML Vial IV ONE (02:00)
[2024-11-01 03:21] LABS: Hematocrit 35.3 % (37.0-53.0); Hemoglobin 11.7 g/dL (13.5-17.5); Mean Platelet Volume 10.9 fL (9.1-12.4); Platelet Count 229 K/mm3 (150-400)
[2024-11-01 03:38] LABS: Bun/Creatinine Ratio 32.3 (12.0-20.0); Calcium, Blood 8.4 mg/dL (8.5-10.1); Creatinine, Blood 1.86 mg/dL (0.60-1.20); Potassium, Blood 3.9 mmol/L (3.5-5.5)
[2024-11-01] MEDS ORDERED: Furosemide 10 MG/ML 4ML Vial IV ONE (03:40)
[2024-11-01 03:52] VITALS: BP 122/86
[2024-11-01] MEDS ORDERED: Clarify Drug Order XX ONE (04:05)
--- NOTE | 2024-11-01 06:42 | NUR ---
NOC SHIFT SUMMARY ROGER WAS ORIENTED X4 OVERNIGHT, INCREASED WOB AND DESATURATIONS ABOUT SENIOR LIVING THROUGH THE SHIFT FIRST MANAGED BY INCREASE TO 11L VIA HFNC BUT ULTIMATELY NOTIFIED ICE CREAM VAN VENDOR PROVIDER DUANE DUE TO INCREASE IN O2 DEMAND, NEW CRACKLES TO BASES AND WORK OF BREATHING. NEEDING HEATED HUMID HFNC AT 60-85% AND 60L. IV LASIX GIVEN X2, PROVIDER TO BEDSIDE TO EVAL. CXR PORTABLE AND CPAP/BIPAP PROTOCOL IF NEEDED. PT VOIDED APPROXIMATELY 1150ML OF THIS AM AND WOB IMPROVED. WILL PASS ON TO DAY RN
--- NOTE | 2024-11-01 08:30 | NUR ---
PT A&OX4, HX OF CVA W/ L SIDED WEAKNESS, USES WHEELCHAIR TO AMBULATE. BED REST AT THIS TIME D/T RESPIRATORY STATUS. IN SINUS W/ 1ST DEGREE BLOCK IN THE 80'S. BLOOD PRESSURE STABLE. LUNG SOUNDS COARSE W/ CRACKLES, SPUTUM PERLUENT W/ RED TINGE. PT IS ON AIRVO 60L 93% FiO2 W SATS >90%, SLIGHTLY TACHYPNEIC W/ RR IN 30s. HAS +1 PITTING TO BLE. BOWEL TONES POSITIVE, PT REPORTS HE IS HAVING DIARRHEA. HPTGTT 14 UNIT/KG/HR. DR OLIVER AT BEDSIDE TO DISCUSS PLAN ON CARE. PT AM MEDS WHOLE W/ SIP OF WATER, DENIES ANY NEEDS AT THIS TIME. CALL LIGHT WITHIN REACH.
[2024-11-01 08:45] VITALS: BP 132/83
[2024-11-01 09:00] VITALS: BP 132/83
[2024-11-01] MEDS ORDERED: CefTRIAXone Sodium 1,000 MG in NS 100 ML IV SCH (09:00)
[2024-11-01] MEDS ORDERED: Azithromycin 500 MG in NS 250 ML IV SCH (09:00)
[2024-11-01] MEDS ORDERED: Dose Adjust by Pharmacy XX STA ×2 (10:18→15:43)
[2024-11-01] MEDS ORDERED: Furosemide 10 MG / ML 2ML Vial IV SCH (11:00)
--- NOTE | 2024-11-01 11:30 | NUR ---
PT A&OX4, COOPERATIVE W/ CARE. BLL SOUNDS COURSE W/ CRACKLES, PT NOT TACHYPENIC, HAS GOOD RESPIRATORY EFFORT, O2 SATS >90 W/ AIRVO. COUGH IS STILL MOIST. DR GUPTA CHANGED LASIX TO 60 MG VIA IV FOR FLUID OVERLOAD. +1 BLE. 500 ML URINE OUTPUT MEASURED. PT HAD 2 BMS, 1 ON BED P[place]NAM, 1 IN DEPENDS, BOTH LOOSE AND RUNNY. NURSE CALLED DR GUPTA TO DISCUSS ABOUT GETTING PT ON A PROBIOTIC TO PREVENT CDIFF AND HE APPROVED, ALONG WITH CONTINUINING HIS HOME ZOLOFT MEDICATION TO PREVENT ANY WITHDRAWALS. CALL LIGHT WITHIN REACH.
[2024-11-01 12:02] VITALS: BP 126/84
[2024-11-01] MEDS ORDERED: Sertraline HCl 50 MG Tab PO SCH (15:00)
--- NOTE | 2024-11-01 15:00 | NUR ---
PT IS A&OX4, PLEASANT ALL SHIFT. GIRLFRIEND AT BEDSIDE . RUL/JOVITA LUNG SOUNDS COURSE, BUT IMPROVING. PATIENT STILL HAS PERLUENT SPUTUM. TRANSITIONED TO CPAP @ 1437 FOR FLUID BALANCE. CPAP 7%, FIO2 50%. NURSE SPOKE WITH PATIENTS DAUGHTER WHO IS POA REGARDING HIS HEALTH ISSUES AND HOSPITAL STAY. PALLATIVE CARE DISCUSSED ADVANCE DIRECTIVES, PT DECIDED NO INTUBATION BUT STILL WANTS CPR IF THE TIME COMES. URINE OUTPUT APPROPIATE FOR DIUERTIC THERAPY. HEPGTT PER DEC. SPEECH THERAPY CONSULTED FOR DYSPHAGIA, WILL TRY AGAIN TOMORROW PT WISHED DUE TO HIS CPAP AND FATIGUE. 1 SMALL BM IN THE BEDPAN. PT TOLERATING CPAP WELL, HAS NO CONCERNS, REACHES OUT IF NEEDED AND APPROPIATELY. CALL LIGHT WITHIN REACH.
[2024-11-01 15:41] VITALS: BP 124/84
--- NOTE | 2024-11-01 16:04 | NUR ---
CLARIFICATION OF CODE STATUS AND SUPPORTIVE VISIT "ROGER" IS A/O X4. ABLE TO MAKE NEEDS KNOWN. ABLE TO HOLD A CONVERSATION WITH CPAP IN PLACE. ROGER EXPRESSES HE DOES NOT WANT INTUBATION. HOWEVER, HE WOULD LIKE CPR. HE WAS ABLE TO TEACH BACK THE PROS AND CONS OF CPR. BEDSIDE RN WAS SECOND RN FOR VERIFICATION OF PT'S REQUEST FOR DNI WITH CPR. GENTLE EDUCATION RE: CHF PROVIDED. ROGER WILL NEED CONTINUING EDUCATION FOR CHF. ROGER HAS A FRIEND, GO AT BEDSIDE FOR MORAL SUPPORT. PC TO REMAIN AVAILABLE NEEDED.
--- NOTE | 2024-11-01 19:17 | NUR ---
Summary: Patient has been alert and oriented x4, T/O the shift. He is JACKSON. He has been in SR with 1st degree, BP stable. He was given lasix once this shift for volume overload, he had a total of around 2L UO. He started the day on Heated high flow NC 60L 95%, with biox in the high 90s. With any activity he would desaturate into the mid 80s and become tachypnec, after a few minutes he would recover. He was able to tolerate being on the C-Pap this afternoon for about 3hours, he said that it made his WOB better. BT+, he did have some diarrhea this shift-MD notified, probiotics ordered. He has a male purewick in place. Good discussion regarding goals of care and code status with the patient and his daughter. He has elected to be DNI. No other changes this shift. Report given to Gena MCFARLANE RN.
[2024-11-01 20:21] VITALS: BP 132/92
[2024-11-01] MEDS ORDERED: Lactobacil 2-S.Thermo-Bifido 1 1 Cap PO SCH (21:00)
[2024-11-02 00:09] VITALS: BP 134/84
[2024-11-02 04:00] VITALS: BP 153/94
[2024-11-02 04:08] LABS: Hematocrit 34.3 % (37.0-53.0); Hemoglobin 11.2 g/dL (13.5-17.5); Mean Corpuscular HGB 34.4 pg (26.0-34.0); Mean Corpuscular HGB Conc 32.7 g/dL (31.5-36.5); Mean Corpuscular Volume 105 fL (80-100); Platelet Count 197 K/mm3 (150-400); RDW Coefficient Variation 14.8 % (11.7-14.2); RDW Standard Deviation 57.1 fL (35.1-46.3); Red Blood Cell Count 3.26 M/mm3 (4.30-5.90); White Blood Cell Count 12.57 K/mm3 (4.00-11.30)
[2024-11-02 04:47] LABS: Calcium, Blood 8.4 mg/dL (8.5-10.1); Creatinine, Blood 1.87 mg/dL (0.60-1.20); Potassium, Blood 3.8 mmol/L (3.5-5.5)
[2024-11-02] MEDS ORDERED: Dose Adjust by Pharmacy XX STA (05:08)
[2024-11-02 08:25] VITALS: BP 132/101
[2024-11-02] MEDS ORDERED: AmLODIPine Besylate 5 MG Tab PO SCH (09:00)
[2024-11-02] MEDS ORDERED: Furosemide 10 MG/ML 4ML Vial IV SCH (09:00)
--- NOTE | 2024-11-02 09:04 | NUR ---
NURSING PCU DAYSHIFT: Assumed care of pt at approx 0700. A/O, very pleasant, cooperative w/care. Mildy APACHE, able to communicated needs w/o difficulty. Denies any pain/discomfort at rest. General weakness, w/c at baseline per pt, xfers w/two staff assist. Skin fragile w/no breakdown noted, coccyx red per report, scattered bruising to UE's. Tele in place, NSR, SBP 132 prior to a.m. meds, no c/o CP/pressure, murmur noted, trace BLE edema. L/S w/exp wheeze in upper lobes, crackles to mid/lower lobes, respirations shallow, dyspnea w/minimal exertion, O2 sat upper 80's to low 90's on Airvo w/settings of 65L/65%, occ cough producing pink tinged sputum. Abd SNT, BT+, voiding w/o difficulty per pt, wicking system in place. PIV x2, hep gtt infusing at initial assessment. No s/s of acute distress at this time. Sitting up in bed having breakfast. Using FV w/o difficulty, educated on importance of deep breathing expercises. Seen by cardiology, discussed plan of care, hep gtt discontinued. Pt denies any current questions/needs, call light in reach, cont to monitor for changes.
[2024-11-02 15:27] VITALS: BP 132/81
--- NOTE | 2024-11-02 17:32 | NUR ---
NURSING PCU DAYSHIFT SUMMARY: Pt has continued to do well t/o shift. Visited w/family/friends majority of the day. Continues to experience dyspnea w/exertion and desaturation w/repositioning though recovers quickly and is improved from previous day per pt. O2 sat mid 90's while sitting up having supper. Uses FV frequently and is successful in producing cough. Strict I/O maintained, good u/o noted. Seen by PMD and nephrology, new d/o received. Pt remains in good spirits and denies any questions regarding plan of care. Call light in reach, cont to monitor until rpt is given to NOC RN.
[2024-11-02 20:06] VITALS: BP 124/80
[2024-11-02 23:50] VITALS: BP 139/81
[2024-11-03 03:37] VITALS: BP 121/71
[2024-11-03 04:55] LABS: Albumin, Blood 2.4 g/dL (3.4-5.0); Anion Gap 9 mmol/L (3-11); Blood Urea Nitrogen 68 mg/dL (8-24); Bun/Creatinine Ratio 41.2 (12.0-20.0); CO2, Blood 29 mmol/L (21-32); Calcium, Blood 8.4 mg/dL (8.5-10.1); Chloride, Blood 108 mmol/L (98-108); Creatinine, Blood 1.65 mg/dL (0.60-1.20); Glomerular Filtration Rate 40 (60-); Glucose, Blood 105 mg/dL (70-99); Magnesium, Blood 2.2 mg/dL (1.6-2.4); Phosphorus, Blood 3.4 mg/dL (2.5-4.9); Potassium, Blood 3.2 mmol/L (3.5-5.5); Sodium, Blood 143 mmol/L (136-145)
[2024-11-03] MEDS ORDERED: Pantoprazole Sodium 20 MG Tab PO SCH (06:00)
--- NOTE | 2024-11-03 06:00 | NUR ---
CALL TO MD RE: LOW POTASSIUM ATTEMPTED TO NOTIFY MD OF LOW POTASSIUM LEVEL- NO ANSWER AT THIS TIME.
--- NOTE | 2024-11-03 06:10 | NUR ---
SHIFT SUMMARY NO ACUTE CHANGES DURING NOC. SLEPT INTERMITTENTLY. ROUSES EASILY TO STIMULI. REMAINED ON HI-FLOW NC. DYSPNEA AND DESATURATIONS NOTED WITH EXERTION/REPOSITIONING. PT RECOVERS WITHIN ONE MINUTE USUALLY. VSS. AFEBRILE. TOLERATING DIET- ASPIRATION PRECAUTIONS. PUREWICK IN PLACE- GOOD URINE OUTPUT T/O NOC. PT DENIES PAIN OR OTHER DISCOMFORT. PLAN OF CARE ONGOING. WILL REPORT TO ONCOMING RN WHEN AVAILABLE.
[2024-11-03] MEDS ORDERED: Potassium Chloride 20 MEQ TabCR PO ONE ×2 (06:15→08:00)
[2024-11-03 08:26] VITALS: BP 122/79
[2024-11-03] MEDS ORDERED: Allopurinol 100 MG Tab PO SCH (09:00)
[2024-11-03] MEDS ORDERED: Enoxaparin 40 MG/0.4 ML SYR SC SCH (09:00)
[2024-11-03 13:54] VITALS: BP 114/64
[2024-11-03 15:41] VITALS: BP 139/73
--- NOTE | 2024-11-03 16:02 | NUR ---
SUMMARY AT START OF SHIFT ON AIRVO AT 60L/ AND 68%. PATIENT CONTINUALLY DESATING INTO 70S WITH EXCERTION. RT IN WHILE TRANSFERRING PATIENT BACK TO BED FROM CHAIR, PATINET DESATED TO 78% PLACED NON-REBREATHER ON AND SATS MAINTAINED >96%. PATIENT RECOVERED AND WAS AGAIN PLACED ON AIRVO. CONTINUED TO DESAT ON AIRVO RT CALLED BACK INTO ROOM AND PLACED ON BI-PAP 07/12 WITH SATS MAINTAINED @92%. PATIENT IS NOW RESTING COMFORTABLY. NOT MUCH OF AN APPETITE TODAY, HAD A BM, PW REPLACED AND ON SX WITH CLEAR YELLOW URINE OUTPUT. 80 OF LASIX TODAY. VSS, CALL LIGHT IS IN REACH.
[2024-11-03 20:19] VITALS: BP 125/79
[2024-11-03 23:31] VITALS: BP 120/77
[2024-11-04] VITALS (8 sets, daily range): BP systolic 113–131; BP diastolic 65–96
[2024-11-04 04:49] LABS: Albumin, Blood 2.4 g/dL (3.4-5.0); Albumin/Globulin Ratio 0.7 (0.8-1.8); Bilirubin, Total 0.5 mg/dL (0.1-1.0); Bun/Creatinine Ratio 37.9 (12.0-20.0); Calcium, Blood 8.5 mg/dL (8.5-10.1); Creatinine, Blood 1.45 mg/dL (0.60-1.20); Globulin, Blood 3.6 g/dL (2.2-4.0); Magnesium, Blood 2.3 mg/dL (1.6-2.4); Phosphorus, Blood 3.4 mg/dL (2.5-4.9); Potassium, Blood 3.6 mmol/L (3.5-5.5)
--- NOTE | 2024-11-04 06:22 | NUR ---
SHIFT SUMMARY PATIENT ALERT AND ORIENTED X4. HAD NO COMPMLAINTS OF PAIN. BECOMES DYSPNIC AND DESATS WITH MINIMAL EXERTION WHEN NOT ON BIPAP. PATIENT CURRENTLY RESTING WITH THE AIRVO ON 60 LITERS AT 75% FIO2. VITAL SIGNS STABLE. WILL CONTINUE TO MONITOR. CALL LIGHT WITHIN REACH.
[2024-11-04] MEDS ORDERED: Potassium Chloride 20 MEQ TabCR PO ONE (07:35)
--- NOTE | 2024-11-04 14:38 | NUR ---
DAUGHTER RADHA CALLED FOR AN UPDATE.
--- NOTE | 2024-11-04 16:10 | NUR ---
SHIFT SUMMARY THE PT IS A&OX4, AND IS ABLE TO MAKE HIS NEEDS KNOWN. HE DOES HAVE LEFT SIDED DEFICIT D/T HX OF CVA. AT BASELINE HE IS W/C BOUND AND USES A SLIDER BOARD. THE PTUSED A 2P ASSIST TO GET OT THE CHAIR TODAY. ON TELE HE HAS BEEN SR AND BP STABLE. THE PT HAS BEEN ON THE AIRVO TODAY. AT THE BEGINING OF THE SHIFT HE WAS ON 60L @ 75%. THE PT IS CURRENTLY DOWN TO 60L @ 65% W/ SP02 >92% AT REST. ANY EXCERTION CAUSES THE PT TO DESATURATE TO THE LOW 80'S, AND GET SOB. HE HAS A MALE PURWICK SET UP TO SUCTION, AND HAS BEEN USING A BEDPAN FOR HIS BOWELS. THE PT HAS HAD A POOR APPETITE AND HAS BEEN ENCOURAGED TO EAT/DRINK. NO ACUTE EVENTS THIS SHIFT, SEE NOTES FOR UPDATES.
[2024-11-05 03:42] VITALS: BP 131/87
--- NOTE | 2024-11-05 06:37 | NUR ---
SHIFT SUMMARY PATIENT ALERT AND ORIENTED X4. HAD NO COMPMLAINTS OF PAIN. NO CHANGES IN RESPIRATORY STATUS OVERNIGHT. VITAL SIGNS STABLE. NO ACUTE ISSUES NOTED OVERNIGHT. WILL CONTINUE TO MONITOR. CALL LIGHT WITHIN REACH.
[2024-11-05 07:25] VITALS: BP 130/77
[2024-11-05 08:34] LABS: Albumin, Blood 2.5 g/dL (3.4-5.0); Anion Gap 11 mmol/L (3-11); Blood Urea Nitrogen 54 mg/dL (8-24); Bun/Creatinine Ratio 36.5 (12.0-20.0); CO2, Blood 31 mmol/L (21-32); Chloride, Blood 107 mmol/L (98-108); Creatinine, Blood 1.48 mg/dL (0.60-1.20); Glomerular Filtration Rate 46 (60-); Glucose, Blood 132 mg/dL (70-99); Phosphorus, Blood 2.5 mg/dL (2.5-4.9); Potassium, Blood 3.7 mmol/L (3.5-5.5); Sodium, Blood 145 mmol/L (136-145)
[2024-11-05] MEDS ORDERED: Azithromycin 250 MG Tab PO SCH (09:00)
--- NOTE | 2024-11-05 11:27 | NUR ---
Pt has been on Air Vo all morning, settings 60 L/min with 76% FiO2. His spo2 ranges from 85-96% depending on the activity level. Takes several minutes for him to recover. He does not have anxiety with the hypoxia, no dyspnea noted. Able to complete sentences and carry on conversation without noted accessory muscle use. He states that he feels his breathing is much better today than it has been. He has been out of bed to recliner twice, with use of the ceiling lift.
[2024-11-05 11:29] VITALS: BP 121/68
--- NOTE | 2024-11-05 14:07 | NUR ---
Pt has been having poor appetite he states for many weeks. Also c/o gaston feeling tongue, which is whitish in appearance. Dr. Quach notified, and she said she was aware and would order something for it.
[2024-11-05 15:17] VITALS: BP 133/71
--- NOTE | 2024-11-05 15:49 | NUR ---
Ceiling lift used to transfer pt from chair to left side lying position in the bed. Photo documentation of coccyx redness updated.
[2024-11-05] MEDS ORDERED: Nystatin 100,000 Unit/ML Susp 5 ML UDC MT SCH (16:00)
--- NOTE | 2024-11-05 18:52 | NUR ---
Pt very weak, had to use the ceiling lift for all transfers. Appetite is good, but only for liquid supplements, applesauce and juice. Declined other solid food today. One episode of loose incontinent brownish green stool. Purewick in place for urine. He states that his edema is much improved since before. Lung sounds are clear, but he remains on airVo and requiring the same high dose of oxygen which he has needed all day (60 l/min and 70 percent FiO2). He says that hiss breathing feels better than 2 days ago.
[2024-11-05 21:28] VITALS: BP 126/72
[2024-11-05 23:23] VITALS: BP 121/72
[2024-11-06] MEDS ORDERED: ACET325 PO (02:28)
[2024-11-06] MEDS ORDERED: ALBU90OI INH (02:30)
[2024-11-06] MEDS ORDERED: Voltaren100 GM TOP (02:35)
[2024-11-06] MEDS ORDERED: DOCU100 PO (02:36)
[2024-11-06] MEDS ORDERED: HYDR1TAB94 PO (02:38)
[2024-11-06] MEDS ORDERED: DULCOLAX400 MG/5 M PO (02:40)
[2024-11-06] MEDS ORDERED: MULVITA PO (02:41)
[2024-11-06] MEDS ORDERED: NYSTRIT TOP (02:42)
[2024-11-06] MEDS ORDERED: MIRALAX17 GM PO (02:43)
[2024-11-06] MEDS ORDERED: TAMS.4ER PO (02:48)
[2024-11-06] MEDS ORDERED: SILD50TA PO (02:48)
[2024-11-06] MEDS ORDERED: Vitamin D1000 UNI1 PO (02:49)
[2024-11-06 03:56] VITALS: BP 119/69
[2024-11-06 04:38] LABS: Albumin, Blood 2.4 g/dL (3.4-5.0); Anion Gap 10 mmol/L (3-11); Blood Urea Nitrogen 52 mg/dL (8-24); Bun/Creatinine Ratio 36.4 (12.0-20.0); CO2, Blood 34 mmol/L (21-32); Calcium, Blood 8.9 mg/dL (8.5-10.1); Chloride, Blood 102 mmol/L (98-108); Creatinine, Blood 1.43 mg/dL (0.60-1.20); Glomerular Filtration Rate 48 (60-); Glucose, Blood 152 mg/dL (70-99); Phosphorus, Blood 2.9 mg/dL (2.5-4.9); Potassium, Blood 3.7 mmol/L (3.5-5.5); Sodium, Blood 142 mmol/L (136-145)
--- NOTE | 2024-11-06 05:40 | NUR ---
SHIFT SUMMARY PATIENT ALERT AND ORIENTED X4. HAD NO COMPLAINTS OF PAIN. NO CHANGE IN RESPIRATORY STATUS OVERNIGHT. VITAL SIGNS STABLE. WILL CONTINUE TO MONITOR. CALL LIGHT WITHIN REACH.
[2024-11-06 07:36] VITALS: BP 123/74
[2024-11-06 11:24] VITALS: BP 115/78
[2024-11-06 17:06] VITALS: BP 128/74
--- NOTE | 2024-11-06 18:01 | NUR ---
SHIFT NOTE: PT A/OX4 ABLE TO MAKE NEEDS KNOWN. HE WAS UP IN THE CHAIR TODAY VIA THE CEILING LIFT. HE REMAINED ON AIRVO T/O DAY. RESP THERAPY ATTEMPTED TO TITRATE O2 REQUIREMENTS. PT CONTINUED TO NEED 50L AND 70% ON THE AIRVO. HIS SIGNIFICANT OTHER WAS AT BEDSIDE THIS AFTERNOON. WHEN HE MOVED BACK TO HIS BED HE WENT BACK TO HIS BIPAP AT 16/10 40%. HE IS RESTING COMFORTABLY NOW WITHOUT SOB. HE WAS EDUCATED ON THE NEED TO ADHERE TO THE FLUID RESTRICTION. HE REPORTS FEELING DEPRESSED AFTER BEING TOLD HE NEEDS TO DRINK LESS. HE HAS A PUREWICK SET TO SUCTION AND USES THE BEDPAN FOR BMS. HIS DAUGHTER (RADHA) HAS BEEN UPDATED ON THE PLAN OF CARE.
[2024-11-06 21:09] VITALS: BP 121/76
[2024-11-07] VITALS: BP 132/79
[2024-11-07 03:57] VITALS: BP 105/51
[2024-11-07 04:50] LABS: Albumin, Blood 2.4 g/dL (3.4-5.0); Anion Gap 11 mmol/L (3-11); Blood Urea Nitrogen 52 mg/dL (8-24); Bun/Creatinine Ratio 35.6 (12.0-20.0); CO2, Blood 35 mmol/L (21-32); Calcium, Blood 9.4 mg/dL (8.5-10.1); Chloride, Blood 101 mmol/L (98-108); Creatinine, Blood 1.46 mg/dL (0.60-1.20); Glomerular Filtration Rate 47 (60-); Glucose, Blood 128 mg/dL (70-99); Phosphorus, Blood 3.5 mg/dL (2.5-4.9); Potassium, Blood 3.7 mmol/L (3.5-5.5); Sodium, Blood 143 mmol/L (136-145)
--- NOTE | 2024-11-07 06:10 | NUR ---
SHIFT SUMMARY ASSUMED CARE OF PT AT APPROX 1900. PT A&O4, COOPERATIVE IN CARE AND ABLE TO MAKE NEEDS KNOW. VSS AND PT REMAINED ON AIRVO MAJORITY OF THE NIGHT ON 50L AT 60%. PT DID ATTEMPT THE BIPAP FOR A COUPLE HOURS BUT WANTED IT REMOVED. PT DENIES CP/PRESSURE AND SOB. BED IN LOWEST POSITION AND CALL LIGHT WITHIN REACH.
[2024-11-07 07:25] VITALS: BP 115/65
--- NOTE | 2024-11-07 07:28 | NUR ---
ASSUMPTION NOTE: THIS RN TO ASSUME CARE OF PATIENT. PATIENT WAS SLEEPING UPON ENTERING BUT EASILY AROUSABLE. VITAL SIGNS TAKEN AND PATIENT STABLE. BED IN LOWEST POSITION AND CALL LIGHT WITHIN REACH.
[2024-11-07 12:09] VITALS: BP 115/67
--- NOTE | 2024-11-07 12:15 | NUR ---
AT BEDSIDE: MD ESPAÑA AT BEDSIDE AND ASSESSED PATIENT. CONTINUED PATIENT TO USE FLUTTER VALVE HE GETS STRONGER EVERY DAY. WE WILL CONTINUE TO TITRATE OXYGEN NEEDS DOWN THROUGHOUT THE SHIFT.
--- NOTE | 2024-11-07 15:16 | NUR ---
MD LYNN: THIS RN AND PATIENT USED THE TELEHEALTH IPAD AND PATIENT TALKED WITH JAVA WEB DEVELOPER MD HANEY VIA ANDREIAOM. ENCOURAGED PATIENT TO GET OUT OF BED AND CONTINUE TO TRY AND EAT MORE. STATED TO PATIENT FROM HIS STAND POINT HE LOOKS LIKE HE IS DOING WELL AND WILL CONTINUE TO MONITOR LABS.
[2024-11-07 15:22] VITALS: BP 110/68
--- NOTE | 2024-11-07 16:20 | NUR ---
MD CALLED: THIS RN CALLED MD REGARDING PATIENT STATING HE HAS 8/10 LEFT SHOULDER BLADE TO LOWER BACK PAIN. HE HAS CHRONIC BACK PAIN AND STATED HE NORMALLY TAKES HYDROCODONE. THIS RN LET HIM KNOW WE TYPICLALY START WITH TYLENOL AND PATIENT STATES THAT DOES NOT WORK FOR HIM AT HOME SO IT WON'T WORK NOW. MD TO PLACE ORDERS FOR PAIN MEDICATION.
[2024-11-07] MEDS ORDERED: HYDROcodone 5-APAP 325 TAB PO STA (16:32)
--- NOTE | 2024-11-07 17:21 | NUR ---
SHIFT SUMMARY: PATIENT IS ALERT AND ORIETNED X4 AND ACTIVE IN HIS CARE. IS ABLE TO MAKE NEEDS KNOWN AND USES CALL LIGHT APPROIRATELY.IS HEARD OF HEARING. PATIENT SATTING >92% ON AIRVO, DOES DESAT WITH EXERTION WITH BED CHANGES AND USING THE BED [place]. PATIENT RECOVERS QUICKLY WHEN BEING REMINDED TO FOCUS ON HIS BREATHING. GIRLFRIEND AT BEDSIDE THROUGHOUT SHIFT. PATIENT COMPLAINED ABOUT 8/10 PAIN AND NEW ORDERS WERE PLACED AND GIVEN PER EMAR. PATIENT CHATTED WITH NEPHROLOGY MD OVER ZOOM AND THEY WILL CONTINUE TO MONITOR LABS. PATIENT WAS ABLE TO REST TODAY AND WAS ENCOURAGED TO EAT AND GIVEN AN ENSURE. THIS RN WILL CONTINUE TO MONITOR PATIENT UNTIL END OF SHIFT AND TALENT DEVELOPMENT DIRECTOR RN ASSUMES CARE.
[2024-11-07] MEDS ORDERED: Furosemide 40 MG Tab PO SCH (18:00)
[2024-11-07 21:00] VITALS: BP 125/74
[2024-11-07] MEDS ORDERED: HYDROcodone 5-APAP 325 TAB PO PRN (21:00)
[2024-11-08] VITALS (7 sets, daily range): BP systolic 102–139; BP diastolic 60–82
[2024-11-08 04:17] LABS: Hematocrit 36.4 % (37.0-53.0); Hemoglobin 11.9 g/dL (13.5-17.5); Mean Corpuscular HGB 34.3 pg (26.0-34.0); Mean Corpuscular HGB Conc 32.7 g/dL (31.5-36.5); Mean Corpuscular Volume 105 fL (80-100); Mean Platelet Volume 11.6 fL (9.1-12.4); Platelet Count 165 K/mm3 (150-400); RDW Coefficient Variation 14.2 % (11.7-14.2); Red Blood Cell Count 3.47 M/mm3 (4.30-5.90); White Blood Cell Count 10.01 K/mm3 (4.00-11.30)
[2024-11-08 04:46] LABS: Albumin, Blood 2.3 g/dL (3.4-5.0); Anion Gap 9 mmol/L (3-11); Blood Urea Nitrogen 56 mg/dL (8-24); Bun/Creatinine Ratio 37.1 (12.0-20.0); CO2, Blood 36 mmol/L (21-32); Chloride, Blood 101 mmol/L (98-108); Creatinine, Blood 1.51 mg/dL (0.60-1.20); Glomerular Filtration Rate 45 (60-); Glucose, Blood 114 mg/dL (70-99); Phosphorus, Blood 4.2 mg/dL (2.5-4.9); Potassium, Blood 3.6 mmol/L (3.5-5.5); Sodium, Blood 142 mmol/L (136-145)
--- NOTE | 2024-11-08 06:51 | NUR ---
SHIFT SUMMARY: PT IS A&OX4, [place], AND COOPERATIVE WITH CARE. VSS, PT IS ON AIRVO 50L, 49% FiO2. DESATS QUICKLY WHILE TALKING, OR WITH ANY EXERTION. C/O PAIN TO HIS LEFT SHOULDER BLADE. KPAD APPLIED WITH LITTLE RELIEF, MEDICATED WITH PRN NORCO. TOLERATING A HEART HEALTHY DIET, POOR APPETITE. DID CONSUME WHOLE ENSURE. 1200 ML FLUID RESTRICTION REINFORCED. WICKING SYSTEM DRAINING ADEQUATE AMOUNTS OF YELLOW URINE. NO BM THIS SHIFT. PT IS A LIFT PT, X2 ASSIST WITH REPOSITIONING. NOOB THIS SHIFT, REPOSITIONED TOLERATED. BED IN LOWEST POSITION, CALL LIGHT WITHIN REACH.
--- NOTE | 2024-11-08 09:14 | NUR ---
POOR ORAL INTAKE, CONTINUED HIGH OXYGEN DEMANDS. HE HAS DIFFICULTY FOLLOWING FLUID RESTRICTIONS. WATER AND JUICE AT HOME WAS IMPORTANT TO HIM. PT WOULD BENEFIT FROM A DIETARY CONSULT. ORDER PLACED.
--- NOTE | 2024-11-08 17:52 | NUR ---
SHIFT SUMMARY: PT HAS BEEN A&Ox4, [place], ANSWERS QUESTIONS APPROPRIATELY, IS COOPERATIVE W/CARE. O2 SATS MAINTAINED >88%, PT DESATS QUICKLY WHEN TALKING OR EXERTING SELF. INITIALLY, PT WAS ON AIRVO AT 50L AND 51%. PT TRIALED ON HI CHANTEL NC TODAY, CURRENTLY AT 6 L/MIN NC AND O2 SATS 93%. REPEAT CHEST XRAY COMPLETED THIS AM, PT TO [facility] DEPT FOR CHEST CT SCAN. SR W/1st DEG HB AND PVCs, RATE 70s. PROVIDER CONSULTATION IN PLACE FOR DR JACKSON. FR MAINTAINED TODAY. LOW PO INTAKE CONTINUES, DIETARY CONSULTATION COMPLETED TODAY. PT STATES FOOD JUST ISN'T APPETIZING TO HIM, BUT HE DID PERK UP AT THE [employer] [facility] OFFERED BY SPEECH THERAPY AND REQUESTED MORE W/DINNER (WHICH HE RECEIVED). MALE PUREWICK CONTINUES IN PLACE, DRAINING YELLOW COLORED URINE TO LOW CONT SUCTION. PT TRANSFERED TO RECLINER FOR PART OF THE DAY VIA LIFT, TOLERATED WELL. PT REPOSITIONED Q2H. PT OCCASIONALLY C/O PAIN IN BACK/L SHOULDER BLADE, REPOSITIONING PERFORMED AND/OR KPAD APPLIED, WORKING WELL SO FAR. PT CURRENTLY IN BED W/MEAL TRAY AND CALL LIGHT IN REACH. WILL CONTINUE TO MONITOR AND TREAT ACCORDINGLY UNTIL CHANGE OF SHIFT.
--- NOTE | 2024-11-09 00:29 | NUR ---
UPDATE PT HAD 11 BEAT RUN OF V-TACH. RESIDENT AWARE. ORDERED A MAG LAB. PT ASYMPTOMATIC. VSS ON 6L HFNC SATS >92%. ALSO C/O PAIN TO LEFT SHOULDER BLADE. ORDERED LIDOCAINE PATCH.
[2024-11-09] MEDS ORDERED: Lidocaine 4% 1 Patch TOP PRN (00:30)
[2024-11-09 03:54] VITALS: BP 126/67
[2024-11-09 05:59] LABS: Albumin, Blood 2.4 g/dL (3.4-5.0); Anion Gap 9 mmol/L (3-11); Blood Urea Nitrogen 53 mg/dL (8-24); Bun/Creatinine Ratio 34.9 (12.0-20.0); CO2, Blood 37 mmol/L (21-32); Calcium, Blood 9.1 mg/dL (8.5-10.1); Chloride, Blood 101 mmol/L (98-108); Creatinine, Blood 1.52 mg/dL (0.60-1.20); Glomerular Filtration Rate 44 (60-); Glucose, Blood 112 mg/dL (70-99); Phosphorus, Blood 3.9 mg/dL (2.5-4.9); Sodium, Blood 143 mmol/L (136-145)
--- NOTE | 2024-11-09 07:32 | NUR ---
SHIFT SUMMARY: PT IS A&OX4, [place], AND COOPERATIVE WITH CARE. VSS, O2 SATS >92% ON 6L HFNC. DESATS QUICKLY WHILE TALKING, OR WITH ANY EXERTION. SR WITH 1ST DEGREE BLOCK IN THE 70'S. PT DID HAVE A 11 BEAT RUN OF VTACH, AND AGAIN AWHILE LATER, A 19 BEAT RUN OF VTACH. RESIDENT AWARE, CHECKED LABS. C/O PAIN TO HIS LEFT SHOULDER BLADE. KPAD APPLIED WITH LITTLE RELIEF, MEDICATED WITH PRN NORCO. PT REMAINS TO HAVE LEFT SHOULDER BLADE PAIN, LIDOCAINE PATCH APPLIED. TOLERATING A HEART HEALTHY DIET, POOR APPETITE. 1200 ML FLUID RESTRICTION REINFORCED. WICKING SYSTEM DRAINING ADEQUATE AMOUNTS OF YELLOW URINE, NO BM THIS SHIFT. PT IS CURRENTLY A LIFT PT, X2 ASSIST WITH REPOSITIONING. NOOB THIS SHIFT, REPOSITIONED TOLERATED. BED IN LOWEST POSITION, CALL LIGHT WITHIN REACH. CALLS APPROPRIATELY AND IS ABLE TO ADVOCATE NEEDS EFFECTIVELY.
[2024-11-09 07:43] VITALS: BP 122/65
[2024-11-09] MEDS ORDERED: Spironolactone 12.5 MG TAB PO SCH (09:00)
[2024-11-09 11:54] VITALS: BP 130/79
[2024-11-09 16:12] VITALS: BP 122/71
--- NOTE | 2024-11-09 18:21 | NUR ---
PALLIATIVE VISIT: MET WITH PATIENT IN ROOM. HE IS IN BED WATCHING TV ON [employer]. NO APPARENT DISTRESS OR DISCOMFORT. PT IS PLEASANT AND ABLE TO ANSWER QUESTIONS. PT RELAYS ALL HIS SYMPTOMS ARE MANAGED AT THIS TIME. HE DENIES ANY PAIN, NAUSEA, DISCOMFORT. PT REPORTS "I AM IMPRESSED WITH MY CARE". HE REPORTS POOR APPETITE BUT IS ENJOYING THE ENSURES A SUPPLEMENT WITH MEALS AND HE IS ALSO GETTING MAGIC CUP. HE IS HOPEFULL HIS APPETITE WILL RETURN SOON. PT REPORTS HE LIVES AT [facility] AND HE HAS NO HOME NEEDS AT THIS TIME. HE REPORTS THE FOOD THERE IS "REALLY GOOD". PT APPEARS TO HAVE NO FURTHER NEEDS AT THIS TIME, HE IS ANTICIPATING DISCHARGE "SOON".
--- NOTE | 2024-11-09 18:28 | NUR ---
SHIFT SUMMARY: PT CONTINUES A&Ox4, COOPERATIVE W/CARE, ABLE TO MAKE NEEDS KNOWN. PT REPORTS IMPROVED SOB, O2 SATS MAINTAINED >90% ON 4-6 L/MIN WITH MINIMAL DESATURATION WHEN TALKING/MOVING. PT DENIES CP, SR ON MONITOR, RATE 70s. L SHOULDER DISCOMFORT CONTINUES INTERMITTENTLY, BUT HAS BEEN MANAGED W/REPOSITIONING THIS SHIFT. MALE PUREWICK CONTINUES, DRAINING CLEAR YELLOW COLORED URINE TO GRAVITY. PT STOOD x2 TODAY W/2P ASSIST, GAIT BELT, WALKER. PT DID EXPERIENCE NAUSEA W/THE ACTIVITY BUT REPORTED IMPROVEMENT UPON REST AND DECLINED NEED FOR ANTI-EMETIC. PT ALSO PARTICIPATED W/ PT AND OT TODAY. PT RESTING QUIETLY IN BED, CALL LIGHT IN REACH.
[2024-11-09 20:41] VITALS: BP 116/76
[2024-11-09 23:51] VITALS: BP 115/64
[2024-11-10 04:12] VITALS: BP 135/95
[2024-11-10 05:56] LABS: Albumin, Blood 2.4 g/dL (3.4-5.0); Anion Gap 10 mmol/L (3-11); Blood Urea Nitrogen 51 mg/dL (8-24); Bun/Creatinine Ratio 33.1 (12.0-20.0); CO2, Blood 35 mmol/L (21-32); Calcium, Blood 9.2 mg/dL (8.5-10.1); Chloride, Blood 102 mmol/L (98-108); Creatinine, Blood 1.54 mg/dL (0.60-1.20); Glomerular Filtration Rate 44 (60-); Glucose, Blood 111 mg/dL (70-99); Phosphorus, Blood 4.2 mg/dL (2.5-4.9); Sodium, Blood 143 mmol/L (136-145)
--- NOTE | 2024-11-10 06:12 | NUR ---
SHIFT SUMMARY: PT IS A&OX4, [place], AND COOPERATIVE WITH CARE. VSS, O2 SATS >92% ON 4-6L HFNC. DESATS QUICKLY WHILE TALKING, OR WITH ANY EXERTION. SR WITH 1ST DEGREE BLOCK IN THE 70'S. C/O PAIN TO HIS LEFT SHOULDER BLADE, MEDICATED WITH PRN NORCO. TOLERATING A HEART HEALTHY DIET, POOR APPETITE. 1200 ML FLUID RESTRICTION REINFORCED. WICKING SYSTEM DRAINING ADEQUATE AMOUNTS OF YELLOW URINE, NO BM THIS SHIFT. X2 ASSIST WITH REPOSITIONING, NOOB THIS SHIFT, AND REPOSITIONED TOLERATED. BED IN LOWEST POSITION, CALL LIGHT WITHIN REACH. CALLS APPROPRIATELY AND IS ABLE TO ADVOCATE NEEDS EFFECTIVELY.
--- NOTE | 2024-11-10 08:00 | NUR ---
NURSING PCU DAYSHIFT SUMMARY: Assumed care of pt at approx 0700. A/O, [place], very pleasant, cooperative w/care. 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 C/O intermittent chronic shoulder/back pain but denied discomfort at time of initial assessment. General weakness noted as pt is able to xfer to w/c independently at baseline. Skin fragile w/scattered bruising/scabs t/o, bruising to LE from lovenox injections, redness to coccyx (improved since previous week). Tele in place, NSR w/1st degree HB, occ PVC's, no c/o CP/pressure, trace LE edema, SBP 130 prior to a.m. meds. O2 sat low to mid 90's on 5L NC while at rest, dyspnea w/minimal exertion, anterior upper lobes w/inspiratory wheeze, fine bibasilar cracklers, mild WELDING SPECIALIST/dry cough w/movement, continuous O2 monitoring in place. Abd SNT, BT+, purewick in place. PIV x2, s/l. Seen by PMD this a.m., plan of care discussed, new d/o received. SN assisting in patient care which pt is agreeable to. Denied any current needs at time of initial assessment, cont to monitor.
[2024-11-10 08:14] VITALS: BP 130/72
--- NOTE | 2024-11-10 12:04 | NUR ---
THIS STUDENT NURSE OBTAINED VERBAL PERMISSION FROM PATIENT TO PROVIDE CARE.
[2024-11-10 12:21] VITALS: BP 129/64
[2024-11-10 16:12] VITALS: BP 126/83
--- NOTE | 2024-11-10 18:13 | NUR ---
NURSING PCU DAYSHIFT SUMMARY: Worked w/O.T. this a.m., OOB to w/c followed by transfer to recliner. Pt remained in recliner until mid afternoon, xfer GUNNAR w/2 staff assist. O2 sat dropped to mid to upper 70s after exertion though recovered w/rest. Minimal appetite t/o day and required encouragement to increase PO intake. Verbalized understanding of importance r/t increasing nutritional intake while maintaining fluid restriction. Pt appears in good spirits and remains hopeful for continued improvement in strength in order to be discharged home rather than SNF. No s/s of acute distress at this time, call light in reach, cont to monitor until rpt is given to NOC RN.
[2024-11-10 19:33] VITALS: BP 142/80
--- NOTE | 2024-11-10 21:42 | NUR ---
ASSUMPTION OF CARE: PATIENT ALERT AND ORIENTED ABLE TO MAKE NEEDS KNOWN, PLEASANT, COOPERATIVE WITH CARE, DENIES CHEST PAIN OR SOB. CURRENLTY ON 7L VIA [employer]. AdyukaCK IN PLACE. VSS. AFEBRILE, NO ACUTE CONCERNS FROM THIS RN AT THIS TIME PLAN OF CARE CONTINUES.
[2024-11-11] VITALS (7 sets, daily range): BP systolic 98–126; BP diastolic 65–75
[2024-11-11 05:29] LABS: Bun/Creatinine Ratio 29.5 (12.0-20.0); Calcium, Blood 9.1 mg/dL (8.5-10.1); Creatinine, Blood 1.66 mg/dL (0.60-1.20); Potassium, Blood 3.7 mmol/L (3.5-5.5)
--- NOTE | 2024-11-11 07:35 | NUR ---
EOS: NO ACUTE EVENTS THROUGH THE NIGHT, STILL DIURESING SLEPT MOST OF THE NIGHT 300mL IN FLUID APPROX 700 mL OUT OF PUREWICK. REPOSITIONS Q2 AND PATIENT NEEDED. MEDICATED ONCE FOR PAIN PER EMAR. OVERALL PLEASANT COOPERATIVE, MINIMLALY IMPROVING, OXYGEN HAD BEEN HIGH 6.5-7, AND LOW 4L VIA NC. AFEBRILE AND NORMOTENSIVE, SPO2 >92% EXCEPT WHEN LAYING FLAT, HEELS ELEVATED OFF BED MUCH POSSIBLE. NO ACUTE CONCERNS FROM THIS RN AT THIS TIME. DENIES CHEST PAIN PRESSURE OR SOB AT REST
--- NOTE | 2024-11-11 17:48 | NUR ---
SHIFT SUMMARY PT A&Ox4, CALLS AND COMMUNICATES NEEDS APPROPRIATELY, [place]. BP STABLE, SSINUS 80's, DENIES CP/PRESSURE. SpO2> 90% 4-7L VIA NC AT REST, PT DESATURATES TO LOW 80's WITH ACTIVITY EVEN ON 15L VIA NC, ASYMPTOMATIC AND RECOVERS TO 90's WITHIN ABOUT 10 MINUTES. NO C/O PAIN. PT TOLERATED GETTING UP TO RECLINER. 2 MAX ASSIST FOR TRANSFERS. NO OTHER EVENTS, WILL REPORT TO ONCOMING RN.
--- NOTE | 2024-11-11 21:08 | NUR ---
ASSUMED CARE OF THIS PT AT 1900. PT IS A+O X4, [place], ABLE TO MAKE NEEDS KNOWN. PT WAS SITTING UP IN BED DRINKING AN ENSURE DURING BEDSIDE SHIFT REPORT. REPOSTIONED PT IN BED TO MAKE HIM MORE COMFORTABLE W/ TWO STAFF MEMBERS. PULLOWS PLACED UNDER R HIP AND BEHIND BACK. PT IS NOW RESTING IN BED. CALL LIGHT IN REACH
[2024-11-12 04:06] VITALS: BP 123/62
[2024-11-12 04:43] LABS: Hematocrit 36.8 % (37.0-53.0); Hemoglobin 12.3 g/dL (13.5-17.5); Mean Corpuscular HGB Conc 33.4 g/dL (31.5-36.5); Mean Corpuscular Volume 105 fL (80-100); Mean Platelet Volume 11.6 fL (9.1-12.4); Platelet Count 226 K/mm3 (150-400); RDW Coefficient Variation 14.1 % (11.7-14.2); RDW Standard Deviation 54.3 fL (35.1-46.3); Red Blood Cell Count 3.51 M/mm3 (4.30-5.90); White Blood Cell Count 14.16 K/mm3 (4.00-11.30)
[2024-11-12 05:22] LABS: Bun/Creatinine Ratio 28.6 (12.0-20.0); Calcium, Blood 9.3 mg/dL (8.5-10.1); Creatinine, Blood 1.61 mg/dL (0.60-1.20); Magnesium, Blood 2.5 mg/dL (1.6-2.4)
--- NOTE | 2024-11-12 05:39 | NUR ---
SHIFT SUMMARY PT IS A+ O X4, [place], ABLE TO MAKE NEEDS KNOWN. Q2 TURN, PT WAS PROVIDED A BED BATH AND LIEN CHANGE. PT HAD A SMALL BOWEL MOVEMENT. MALE PUREWICK CHANGED AND NEW ONE REMAINS IN PLACE DRAINING YELLOW COLORED URINE. PT ON 4 LITERS NC, REQUIRED UP TO 8 LITERS DURING SHIFT. PT DESATURATES W/ MOVEMENT AND TAKES UP TO 10 MINUTES TO RECOVER FROM ACTIVITY. DENIES CHEST PAIN OR PRESSURE B/P STABLE. REPORTED SHOULDER PAIN BUT DENIED PAIN MEDICATION. PILLOWS PLACED BEHIND BACK FOR COMFORT. OVERHEAD LIFT USED TO REPOSTION PT WHEN NEEDED. PT HAS L SIDE DEFICTS FROM hx OF CVA. L ARM ELAVATED ON PILLOW MOST SHIFT FOR COMFORT. CALL LIGHT IN REACH, WILL CONTINUE TO TREAT AND REPORT TO ONCOMING RN.
[2024-11-12 07:52] VITALS: BP 113/69
[2024-11-12 11:08] VITALS: BP 120/75
[2024-11-12 14:52] LABS: Adenovirus Not Detected (NOT DETECT); Bordetella pertussis Not Detected (NOT DETECT); Chlamydophila pneumoniae Not Detected (NOT DETECT); Coronavirus 229E Not Detected (NOT DETECT); Coronavirus HKU1 Not Detected (NOT DETECT); Coronavirus NL63 Not Detected (NOT DETECT); Coronavirus OC43 Not Detected (NOT DETECT); Human Metapneumovirus Not Detected (NOT DETECT); Human Rhinovirus/Enterovirus Not Detected (NOT DETECT); Influenza A/2009-H1 Not Detected (NOT DETECT); Influenza A/H1 Not Detected (NOT DETECT); Influenza A/H3 Not Detected (NOT DETECT); Influenza B Not Detected (NOT DETECT); Mycoplasma pneumoniae Not Detected (NOT DETECT); Parainfluenza Virus 1 Not Detected (NOT DETECT); Parainfluenza Virus 2 Not Detected (NOT DETECT); Parainfluenza Virus 3 Not Detected (NOT DETECT); Parainfluenza Virus 4 Not Detected (NOT DETECT); Respiratory Syncytial Virus Not Detected (NOT DETECT); SARS-Cov-2 (COVID-19), BioFire Not Detected (NOT DETECT)
[2024-11-12 15:45] VITALS: BP 116/71
--- NOTE | 2024-11-12 18:09 | NUR ---
PT SUMMARY; PT REMAINED DECONDITIONED WAS ABLE TO GET UP IN THE RECLINER CHAIR WITH 2 MAX ASSISTANCE VIA GAITBELT. HAS SOME OVERALL PAIN WHEN MOVING AROUND. REQUIRING AT LEAST 12L OF O2 UPON RECOVERY PT DESATS TO LOW 80'S, CAN TOLERATED 6-8L AT REST. PT REMAINED ALERT AND ORIENTED GETS IRRITATED AT TIMES, MOSTLY WHEN PT IS GETTING MOVED/ATTENDS BEING CHANGED. VITALS HRR SR WITH PVCS 80'S, SBP 116-120'S, AFEBRILE. PT HAD CHEST XRAY DONE THIS MORNING MD MADE AWARE OF THE RESULT ORDERED ST TO EVAL AND TREAT, BARIUM SWALLOW ORDERED FOR POSSIBLE SILENT ASPIRATION. RESSPI PANEL CAME BACK NEGATIVE. RADHA THE DAUGHTER CALLED TO GET AN UPDATE, UPDATE PROVIDED VIA PHONE. GIRLFRIEND GO WAS ABLE TO COME AND VISIT. PT COMPLIANT WITH FLUID RESTRICTION, APPETITE HAS IMPROVED A LITTLE FOR THE SHIFT, PT FINISHED ENSURE THIS MORNING AND SOME OF HIS MEALS. PUREWICK REMAINED IN PLACE. PT REMAINED UP IN THE RECLINER AT THIS TIME, PT ABLE TO CALL APPROPRIATELY CALL LIGHTS IN REACH WILL REPORT TO ONCOMING SHIFT
[2024-11-12 19:54] VITALS: BP 116/71
--- NOTE | 2024-11-12 21:20 | NUR ---
ASSUMED CARE OF THIS PT AT 1900. PT IS A+O X4, [place], ABLE TO MAKE NEEDS KNOWN. DURING BEDSIDE SHIFT REPORT PT WAS SITTING UP IN RECLINER, ADDED CONVERSATION TO REPORT. PER DAY SHIFT RN HAD BETTER ORAL INTAKE TODAY. AROUND 1999 PT REQUESTED TO GET BACK INTO BED, PT IS A 2 PERSON MAX ASSIST WITH FWW FOR TRANSFER. PT DID HAVE A BM ONCE GETTING BACK INTO BED AND WAS CLEANED UP BY TWO STAFF MEMEBERS. PT IS NOW BACK IN BED WITH PILLOWS UNDER BOTH ARMS AND HEELS ELAVATED OFF OF BED. VSS. DENIES CHEST PAIN OR PRESSURE. ON 5 L NC SATTING AT 95%. CALL LIGHT IN REACH.
[2024-11-12 23:34] VITALS: BP 119/72
[2024-11-13 03:57] VITALS: BP 109/57
[2024-11-13 04:56] LABS: Hematocrit 34.2 % (37.0-53.0); Hemoglobin 11.3 g/dL (13.5-17.5); Mean Corpuscular HGB 34.6 pg (26.0-34.0); Mean Corpuscular Volume 105 fL (80-100); Mean Platelet Volume 11.4 fL (9.1-12.4); Platelet Count 214 K/mm3 (150-400); RDW Standard Deviation 53.9 fL (35.1-46.3); Red Blood Cell Count 3.27 M/mm3 (4.30-5.90); White Blood Cell Count 11.07 K/mm3 (4.00-11.30)
[2024-11-13 05:23] LABS: Bun/Creatinine Ratio 24.4 (12.0-20.0); Calcium, Blood 9.1 mg/dL (8.5-10.1); Creatinine, Blood 1.64 mg/dL (0.60-1.20); Magnesium, Blood 2.2 mg/dL (1.6-2.4); Phosphorus, Blood 4.2 mg/dL (2.5-4.9); Potassium, Blood 3.5 mmol/L (3.5-5.5)
--- NOTE | 2024-11-13 06:38 | NUR ---
SHIFT SUMMARY PT IS A+O X4, ABLE TO MAKE NEEDS KNOWN IS [place]. Q2 REPOSTIONING PROVIDED TO PATIENT THROUGHTOUT SHIFT. PATIENT SLEPT WELL DURING THE NIGHT AND ONLY AWOKE TO CARES PROVIDED. 400 mls OF FLUID INTAKE THIS SHIFT. VSS. NEEDED 4 L AT REST NC AND UP TO 10 L W/ ACTIVITY. SATTING AT 96% ON 4 L CURRENTLY. PT DENIES NEEDS AT THIS TIME. BREATHING EVEN AND UNLABORED RESTING IN BED. BED IN LOWEST POSTION FOR SAFETY, CALL LIGHT IN REACH.
[2024-11-13 07:56] VITALS: BP 107/62
[2024-11-13 11:21] VITALS: BP 126/71
--- NOTE | 2024-11-13 18:02 | NUR ---
PT SUMMARY; NO ACUTE CHANGE FOR THE SHIFT, PT WAS UP IN THE CHAIR AFTER LUNCH VIA 2 MAX PERSON ASSIST PT NEEDING ATLEAST 12L OF O2 TO RECOVER, MOSTLY ON 5L T/O SHIFT. VITALS HAS BEEN STABLE. PT WITH DISCOMFORT IN THE BACK RELIEVED WITH REPOSITIONING. AWAITING BARIUM SWALLOW TO BE DONE, POSSIBLY DC ON FRIDAY BACK TO [facility] IF STABLE. NO OTHER ISSUES FOR THE SHIFT, PT HAS BEEN CALLING APPROPRIATELY. PUREWICK IN PLACE WITH ADEQUATE OF URINE OUT. WILL REPORT TO ONCOMING SHIFT
[2024-11-13 20:21] VITALS: BP 125/61
[2024-11-14 00:17] VITALS: BP 103/60
[2024-11-14 04:13] LABS: Hematocrit 33.5 % (37.0-53.0); Hemoglobin 11.2 g/dL (13.5-17.5); Mean Corpuscular HGB 34.6 pg (26.0-34.0); Mean Corpuscular HGB Conc 33.4 g/dL (31.5-36.5); Mean Corpuscular Volume 103 fL (80-100); Mean Platelet Volume 11.2 fL (9.1-12.4); Platelet Count 213 K/mm3 (150-400); RDW Coefficient Variation 14.2 % (11.7-14.2); RDW Standard Deviation 53.2 fL (35.1-46.3); Red Blood Cell Count 3.24 M/mm3 (4.30-5.90)
[2024-11-14 04:20] VITALS: BP 107/64
--- NOTE | 2024-11-14 04:35 | NUR ---
SHIFT SUMMARY. SHIFT HAS BEEN UNREMARKABLE. PT HAS BEEN AOX4, PLEASANT, COOPERATIVE WITH CARE, ABLE TO MAKE NEEDS KNOWN. HAS BEEN ABLE TO REST COMFORTABLY THROUGHOUT SHIFT. HAS DENIED PAIN THROUGHOUT SHIFT. PUREWICK IN PLACE THROUGHOUT SHIFT. ONE INCONTINENT BM THIS SHIFT. Q2 HOUR REPOSITIONING. PT HAS MAINTAINED ADEQUATE SATURATION ON 5-8 L O2 VIA NC THROUGHOUT SHIFT. VITALS STABLE OTHERWISE OUTSIDE OF SOFT SBP AT TIMES. HAS BEEN RUNNING SINUS RHYTHM THROUGHOUT SHIFT. BED LOCKED IN LOWEST POSITION. CALL LIGHT LEFT WITHIN REACH. CONTINUING TO MONITOR.
[2024-11-14 04:42] LABS: Bun/Creatinine Ratio 25.3 (12.0-20.0); Calcium, Blood 9.1 mg/dL (8.5-10.1); Creatinine, Blood 1.62 mg/dL (0.60-1.20); Magnesium, Blood 2.3 mg/dL (1.6-2.4); Phosphorus, Blood 3.8 mg/dL (2.5-4.9); Potassium, Blood 3.4 mmol/L (3.5-5.5)
[2024-11-14] MEDS ORDERED: Potassium Chloride 20 MEQ/15 ML UDC PO ONE (07:15)
[2024-11-14 07:32] VITALS: BP 120/74
[2024-11-14 11:27] VITALS: BP 120/59
[2024-11-14] MEDS ORDERED: Saline Nasal Spray 45 ML PRN (15:40)
[2024-11-14 16:46] VITALS: BP 118/71
--- NOTE | 2024-11-14 17:39 | NUR ---
PT SUMMARY; NO ACUTE CHANGE FOR THE SHIFT. PT HAS BEEN UP IN THE CHAIR SINCE BEFORE LUNCH TIME, 2PERSON MAX ASSIST VIA GAIT BELT. HAS BEEN ON 5L OF O2 MOST OF THE SHIFT, NEEDING ATLEAST 10L TO RECOVER, SOB WITH EXERTION. STILL HASNT HAD [facility] OF APPETITE MOSTLY DRINKING ENSURE T/O SHIFT. COMPLIANT WITH FLUID RESTRICTION. GIRLFRIEND CURRENTLY IN ROOM TO VISIT. PT HAS BEEN CALLING APPROPRIATELY. BARIUM SWALLOW IN AM TO DC BACK TO [facility] IF STABLE. WILL REPORT TO ONCOMING SHIFT
[2024-11-15 04:38] LABS: Hematocrit 32.2 % (37.0-53.0); Hemoglobin 10.7 g/dL (13.5-17.5)
[2024-11-15 04:54] LABS: Bun/Creatinine Ratio 21.3 (12.0-20.0); Calcium, Blood 8.9 mg/dL (8.5-10.1); Creatinine, Blood 1.83 mg/dL (0.60-1.20); Magnesium, Blood 2.4 mg/dL (1.6-2.4); Potassium, Blood 3.6 mmol/L (3.5-5.5)
--- NOTE | 2024-11-15 06:49 | NUR ---
SHIFT SUMMARY PT HAS GONE THROUGH NIGHT WITH NO CHANGES TO STATUS. PT REMAINS ON 5LPM OXYMASK AND IS STILL UNSTEADY MOVING FROM CHAIR TO BED, REQUIRING TWO PERSON ASSIST. PT HAS TOLERATED NIGHT WELL AND HAS HAD NO COMPLAINTS THROUGHOUT NIGHT. WILL CONTINUE TO MONITOR UNTIL REPORT PASSED TO DAY SHIFT TEAM.
[2024-11-15 07:40] VITALS: BP 127/69
[2024-11-15] MEDS ORDERED: Furosemide 40 MG Tab PO SCH (09:00)
--- NOTE | 2024-11-15 10:40 | NUR ---
MORNING NOTE THIS RN ASSUMED CARE AT APPROX 0715. PATIENT ALERT AND ORIENTED X4. GENERALIZED L SIDE WEAKNESS RELATED TO PAST CVA. VSS. SBP 120s. MAP >65. TELEMETRY SHOWING SINUS 80s. DENIES CHEST PAIN, PRESSURE. ON 4-8L VIA HI FLOW NC OR OXYMASK, SATs 88-95%. DOES DESAT <88% WITH ACTIVITY REQUIRING ADDITIONAL OXYGEN TO RECOVER. BARIUM SWALLOW COMPLETED THIS MORNING - DIET CHANGE TO SOFT/BITE SIZED LEVEL 6, MILDLY THICK LIQUIDS - NO STRAWS, MEDS ONE AT A TIME WITH APPLESAUCE. UP TO CHAIR WITH 2P MAX ASSIST. MALE PW IN PLACE FOR URINARY MANAGEMENT - DRAINING YELLOW URINE TO SUCTION. CALL LIGHT IN REACH.
[2024-11-15 11:02] VITALS: BP 102/52
[2024-11-15 15:18] VITALS: BP 117/65
--- NOTE | 2024-11-15 15:24 | NUR ---
Pt has decided to go home with hospice. He has made it clear to both staff and his daughter that he is not interested in returning to any SNF. [facility] is agreeable to take the patient home with hospice services. CRYSTAL updated, pt's daughter Ophelia also agreeable. CM arranging discharge with [facility].
--- NOTE | 2024-11-15 16:47 | NUR ---
SHIFT SUMMARY NO ACUTE CHANGES SINCE MORNING NOTE. PATIENT REMAINS ALERT AND ORIENTED X4. COMMUNICATING NEEDS EFFECTIVELY. VSS. TELEMETRY SHOWING SINUS 70s-80s. SBP 100s-110s. MAP >65. DENIES CHEST PAIN, PRESSURE. REMAINS ON 4-8L VIA HI FLOW NC, SATs >88%. USING OXYMASK 5-6L WITH SLEEP. UP IN CHAIR MAJORITY OF THE DAY WITH 2P LIFT ASSIST. UNABLE TO WORK WITH PHYSICAL THERAPY TODAY. PUREWICK IN PLACE - DRAINING YELLOW URINE TO SUCTION. X1 LARGE BM TODAY. CASE MANAGEMENT AND PALLATIVE CARE AT BEDSIDE THIS AFTERNOON TO DISCUSS GOALS OF CARE - PATIENT CHOOSING TO DC HOME WITH HOSPICE TOMORROW. CALL LIGHT IN REACH. GIRLFRIEND AT BEDSIDE THROUGHOUT DAY.
[2024-11-15 19:51] VITALS: BP 128/77
[2024-11-16 00:11] VITALS: BP 115/66
[2024-11-16 04:14] LABS: Hemoglobin 10.9 g/dL (13.5-17.5)
[2024-11-16 04:37] LABS: Bun/Creatinine Ratio 20.9 (12.0-20.0); Calcium, Blood 9.2 mg/dL (8.5-10.1); Creatinine, Blood 1.87 mg/dL (0.60-1.20); Magnesium, Blood 2.5 mg/dL (1.6-2.4); Potassium, Blood 3.7 mmol/L (3.5-5.5)
[2024-11-16 05:00] VITALS: BP 124/71
--- NOTE | 2024-11-16 05:18 | NUR ---
SHIFT SUMMARY PATIENT ALERT, ORIENTED x4, ABLE TO MAKE NEEDS KNOWN TO STAFF. BP STABLE. ON 7L HFNC DURING THE NIGHT, SPO2 LOW TO MID 90s. ON TELE, SR. PUREWICK IN PLACE, YELLOW URINE TO SUCTION, ADEQUATE OUTPUT. NO OTHER CHANGES, WILL REPORT TO DAY SHIFT RN.
[2024-11-16 09:27] VITALS: BP 106/62
[2024-11-16] MEDS ORDERED: LIDO700A20 TOP (10:11)
[2024-11-16] MEDS ORDERED: JARDIANCE10 MG PO (10:11)
[2024-11-16] MEDS ORDERED: SPIR25 PO (10:12)
[2024-11-16] MEDS ORDERED: METO25ER PO (10:12)
[2024-11-16] MEDS ORDERED: NITR.4SL SL (10:12)
[2024-11-16] MEDS ORDERED: NASAL SPRAY88 ML (10:13)
[2024-11-16 11:13] VITALS: BP 126/66
[2024-11-16] MEDS ORDERED: ATOR40TA PO (11:16)
--- NOTE | 2024-11-16 14:44 | NUR ---
DISCHARGE SUMMARY PT A&Ox4, CALLS AND COMMUNICATES NEEDS APPROPRIATELY, [place]. BP STABLE, SINUS 80's, DENIES CP/PRESSURE. SpO2> 90% 6L VIA NC AT REST, PT DESATURATES TO MID 80's WITH ACTIVITY. NO C/O PAIN. PT TOLERATED GETTING UP TO RECLINER. 2 MAX ASSIST FOR TRANSFERS. PT LEFT VIA WHEELCHAIR WITH TRANSPORT AT APPROXIMATELY 1440 [facility] ALL PT BELONGINGS. THIS RN NOTIFIED [facility] THAT PT LEFT.
== END 2024-11-16 14:30 | disposition home health service (06) | DRG 871 ==
LOC: ER 02:59 → PCU 05:00 → ERHOLD 05:00 → ER 05:32 → PCU 12:44
PROVIDERS: Emergency Medicine; Hospitalist; Internal Medicine; Internal Medicine Nephrology; ADMIT Internal Medicine
PROC: 3E03329 Introduction of Other Anti-infective into Peripheral Vein, Percutaneous Approach (ICD-10-PCS; principal; 2024-10-30)
PROC: 5A0955A Assistance with Respiratory Ventilation, Greater than 96 Consecutive Hours, High Flow/Velocity Cannula (ICD-10-PCS; 2024-10-30)
PROC: 5A09557 Assistance with Respiratory Ventilation, Greater than 96 Consecutive Hours, Continuous Positive Airway Pressure (ICD-10-PCS; 2024-11-01)
DX: A41.9 Sepsis, unspecified organism (principal); I21.4 Non-ST elevation (NSTEMI) myocardial infarction; J18.9 Pneumonia, unspecified organism; J96.01 Acute respiratory failure with hypoxia; I50.23 Acute on chronic systolic (congestive) heart failure; J69.0 Pneumonitis due to inhalation of food and vomit; I69.354 Hemiplegia and hemiparesis following cerebral infarction affecting left non-dominant side; I13.0 Hypertensive heart and chronic kidney disease with heart failure and stage 1 through stage 4 chronic kidney disease, or unspecified chronic kidney disease; N17.9 Acute kidney failure, unspecified; I42.9 Cardiomyopathy, unspecified; Z66 Do not resuscitate; E78.00 Pure hypercholesterolemia, unspecified; M10.9 Gout, unspecified; M19.90 Unspecified osteoarthritis, unspecified site; K21.9 Gastro-esophageal reflux disease without esophagitis; I73.9 Peripheral vascular disease, unspecified; R65.20 Severe sepsis without septic shock; N18.32 Chronic kidney disease, stage 3b; I35.0 Nonrheumatic aortic (valve) stenosis; E78.5 Hyperlipidemia, unspecified; I87.2 Venous insufficiency (chronic) (peripheral); F32.A Depression, unspecified; E87.6 Hypokalemia; R54 Age-related physical debility; Z79.899 Other long term (current) drug therapy; Z79.82 Long term (current) use of aspirin; Z79.1 Long term (current) use of non-steroidal anti-inflammatories (NSAID); Z79.891 Long term (current) use of opiate analgesic; Z87.81 Personal history of (healed) traumatic fracture; Z98.890 Other specified postprocedural states; Z90.49 Acquired absence of other specified parts of digestive tract; Z90.89 Acquired absence of other organs; Z87.891 Personal history of nicotine dependence; Z99.3 Dependence on wheelchair
CPT/HCPCS: 0202U; 36415; 71045; 71250; 74230; 80048; 80053; 80069; 81003; 82803; 82947; 83605; 83735; 83880; 84100; 84145; 84484; 85014; 85018; 85025; 85027; 85049; 85379; 85520; 85610; 85730; 87040; 87428-QW; 92526; 92610; 92611; 93005; 93010; 94640; 94660; 94664; 94760; 94761; 94762; 97110; 97162; 97165; 97530; 99285-25; A9270; C8929; J0456; J0696; J1644; J1650; J1940; J2405; J2470; J2543; J2919; J3370; J3475; J3480; J7040; J7050; Q9957